=== PATIENT | male | born 1945 | race Caucasian/White ===

== ENCOUNTER 2021-02-07 09:25 | Inpatient (IN) | payer MEDICARE, OTHER ==
--- NOTE | 2021-02-07 10:08 | EDM.PDOC ---
ED HPI GENERAL MEDICAL PROBLEM - General Chief Complaint: Respiratory Problem Stated Complaint: Dyspnea Time Seen by Provider: 02/07/21 09:30 Source of Information: Reports: Patient History Limitations: Reports: No Limitations - History of Present Illness INITIAL COMMENTS - FREE TEXT/NARRATIVE: Patient presented to the ED because of dyspnea which started sometime in December 2009. He was seen in the ED on 01/05/21 and Covid test was negative but chest CT did show bilateral interstitial infiltrates consistent with Covid. He was treted with Dexamethasone 4 mg daily for 10 days and Levaqui 500 mg daily for 10 days which according to him helped with his breathing but days later he started to have dyspnea again and on 02/03/21 he was prescribed prednisone 5 mg daily x 14 days and albuterol Inhaler. There is associated chest tighness and chills but afebrile. There iis no N/V/D. He got his 2 Covid moderna doses the lat one was on 02/03/21 Chest Pain Score (Numeric/FACES): 2 - Related Data Allergies Allergy/AdvReac Type Severity Reaction Status Date / Time No Known Allergies Allergy Verified 02/07/21 09:46 Home Meds: Home Meds Albuterol [Ventolin HFA] 2 puff IH QID PRN 02/07/21 [History] Aspirin [Halfprin] 81 mg PO BEDTIME 02/07/21 [History] Calcium Carbonate/Vitamin D3 [Calcium 250+D] 2 tab PO DAILY 02/07/21 [History] Carboxymethylcellulose Sodium [Refresh Tears] 1 drop EYEBOTH TID PRN 02/07/21 [History] Diclofenac Sodium [Voltaren 1% Gel] 4 gm TOP QID PRN 02/07/21 [History] Fish Oil/[place]-3 Fatty Acids [Fish Oil 1,000 MG] 4 gm PO DAILY 02/07/21 [History] Fluticasone Propionate [Flonase] 2 spray NASBOTH DAILY PRN 02/07/21 [History] Multivitamin-Min/Iron/FA/Vit K [Multi-Day Plus Minerals Tablet] 1 ea PO BEDTIME 02/07/21 [History] Naproxen 250 mg PO BID 02/07/21 [History] Nitroglycerin 0.4 mg SL Q5M PRN 02/07/21 [History] Simvastatin 10 mg PO BEDTIME 02/07/21 [History] atenoloL [Atenolol] 25 mg PO BEDTIME 02/07/21 [History] predniSONE 5 mg PO DAILY 02/07/21 [History] Social & Family History - Tobacco Use Tobacco Use Status *Q: Never Tobacco User - Caffeine Use Caffeine Use: Reports: Coffee - Recreational Drug Use Recreational Drug Use: No ED ROS GENERAL - Review of Systems Review Of Systems: See Below Constitutional: Reports: Chills HEENT: Reports: No Symptoms Respiratory: Reports: Shortness of Breath, Cough Cardiovascular: Reports: Edema Endocrine: Reports: No Symptoms GI/Abdominal: Reports: No Symptoms : Reports: No Symptoms Musculoskeletal: Reports: No Symptoms Skin: Reports: No Symptoms Neurological: Reports: No Symptoms Psychiatric: Reports: No Symptoms Hematologic/Lymphatic: Reports: No Symptoms ED EXAM, GENERAL - Physical Exam Exam: See Below Exam Limited By: No Limitations General Appearance: Alert, No Apparent Distress Eye Exam: Bilateral Eye: PERRL Ears: Normal External Exam, Normal Canal Nose: Normal Inspection, Normal Mucosa, No Blood Throat/Mouth: Normal Inspection, Normal Lips, Normal Teeth Head: Atraumatic, Normocephalic Neck: Normal Inspection, Supple, Non-Tender, Full Range of Motion Respiratory/Chest: No Respiratory Distress, Decreased Breath Sounds Cardiovascular: Normal Peripheral Pulses, Regular Rate, Rhythm, No JVD, No Murmur, No Rub GI/Abdominal: Normal Bowel Sounds, Soft, Non-Tender, No Organomegaly, No Distention, No Abnormal Bruit, No Mass Back Exam: Normal Inspection, Full Range of Motion Extremities: Normal Inspection, Normal Range of Motion, Non-Tender, Pedal Edema Neurological: Alert, Oriented, CN II-XII Intact, Normal Cognition, Normal Reflexes, No Motor/Sensory Deficits #1 Interpretation EKG Date: 02/07/21 Time: 09:27 Rhythm: NSR Rate (Beats/Min): 72 [place]: Normal P-Wave: Present QRS: RBBB ST-T: Normal QT: Normal Comparison: No Change (NSR RBBB) EKG Interpretation Comments: NSR RBBB Course - Vital Signs Text/Narrative:: Lab/EKG/CXR/Chest CT result was reviewed and discussed with patient and his Duoneb x1 Solumedrol 125 mg IV x1 Lasix 40 mg IV x1 Zaoxolyn 5 mg po x1 Last Recorded V/S: Last Vital Signs Temp 36.6 C 02/08/21 08:51 Pulse 69 02/08/21 08:51 Resp 24 H 02/08/21 08:51 BP 119/74 02/08/21 08:51 Pulse Ox 91 L 02/08/21 08:51 - Orders/Labs/Meds Orders: Active Orders 24 hr Category Date Time Status RT Aerosol Therapy [RC] ASDIRECTED Care 02/07/21 11:15 Active Sodium Chloride 0.9% [Saline Flush] Med 02/07/21 09:32 Active 10 ml FLUSH ASDIRECTED PRN Saline Lock Insert [OM.PC] Routine Oth 02/07/21 09:32 Ordered EKG 12 Lead [EK] Routine Ther 02/07/21 09:32 Ordered Medication Orders Albuterol/Ipratropium (Albuterol/Ipratropium 3.0-0.5 Mg/3 Ml Neb Soln) 3 ml NEB QID PRN PRN Reason: DYSPNEA Atenolol (Atenolol 25 Mg Tab) 25 mg PO BEDTIME [facility] Last Admin: 02/07/21 21:50 Dose: 25 mg Documented by: ISI Enoxaparin Sodium (Enoxaparin 40 Mg/0.4 Ml Syringe) 40 mg SUBCUT Q24H [facility] Last Admin: 02/07/21 15:38 Dose: 40 mg Documented by: HERON Furosemide (Furosemide 20 Mg/2 Ml Vial) 20 mg IVPUSH BIDDIURETIC [facility] Last Admin: 02/08/21 09:11 Dose: 20 mg Documented by: KARY Piperacillin Sod/Tazobactam (Sod 3.375 gm/ Sodium Chloride) 50 mls @ 100 mls/hr IV Q6H [facility] Last Admin: 02/08/21 09:17 Dose: 100 mls/hr Documented by: Admin: 02/08/21 03:22 Dose: 100 mls/hr Documented by: Admin: 02/07/21 21:50 Dose: 100 mls/hr Documented by: ISI Multivitamins/Minerals (Multivitamins With Iron/Calcium/Folic Acid/Minerals Tab) 1 tab PO BEDTIME [facility] Ondansetron HCl (Ondansetron 4 Mg/2 Ml Sdv) 4 mg IV Q4H PRN PRN Reason: Nausea/Vomiting Potassium Chloride (Potassium Chloride 20 Meq Tab.Er) 20 meq PO BID [facility] Last Admin: 02/08/21 09:11 Dose: 20 meq Documented by: KARY Saccharomyces Boulardii (Saccharomyces Boulardii (Probiotic) 250 Mg Cap) 250 mg PO BID [facility] Last Admin: 02/08/21 09:10 Dose: 250 mg Documented by: KARY Senna/Docusate Sodium (Docusate Sodium/Sennosides 50-8.6 Mg Tab) 1 tab PO BID PRN PRN Reason: Constipation Simvastatin (Simvastatin 10 Mg Tab) 10 mg PO BEDTIME [facility] Last Admin: 02/07/21 21:50 Dose: 10 mg Documented by: ISI Sodium Chloride (Sodium Chloride 0.9% 10 Ml Syringe) 10 ml FLUSH ASDIRECTED PRN PRN Reason: Keep Vein Open Last Admin: 02/08/21 09:13 Dose: 10 ml Documented by: Admin: 02/08/21 05:45 Dose: 10 ml Documented by: Admin: 02/08/21 04:00 Dose: 10 ml Documented by: Admin: 02/07/21 22:35 Dose: 10 ml Documented by: Admin: 02/07/21 20:05 Dose: 10 ml Documented by: Admin: 02/07/21 11:43 Dose: 10 ml Documented by: DOMINIQUE Labs: Laboratory Tests 02/07/21 02/07/21 02/07/21 Range/Units 09:45 09:45 09:45 WBC 10.8 H (3.2-10.1) x10-3/uL RBC 5.18 (3.90-5.90) x10(6)uL Hgb 15.9 (12.9-17.7) g/dL Hct 46.1 (38.3-50.1) % MCV 89.0 (80.8-98.7) fL MCH 30.7 (27.0-33.3) pg MCHC 34.4 (28.7-35.3) g/dL RDW 14.9 (12.4-15.0) % Plt Count 264 (117-477) x10(3)uL MPV 8.7 (6.7-11.0) fL Neut % (Auto) 72.7 H (40.3-71.8) % Lymph % (Auto) 15.1 L (15.8-45.3) % [place] % (Auto) 9.7 (5.5-15.2) % Eos % (Auto) 2.1 (0.1-6.8) % Baso % (Auto) 0.4 (0.3-3.8) % Neut # (Auto) 7.9 H (1.7-6.9) x10-3/uL Lymph # (Auto) 1.6 (0.5-4.5) x10-3/uL [place] # (Auto) 1.0 (0.0-1.2) x10-3/uL Eos # (Auto) 0.2 (0.0-0.6) x10-3/uL Baso # (Auto) 0.0 (0.0-0.3) x10-3/uL D-Dimer, Quantitative 1.02 H (0.0-0.59) mg/LFEU Sodium 142 (135-145) mmol/L Potassium 4.1 (3.5-5.3) mmol/L Chloride 103 (100-110) mmol/L Carbon Dioxide 24 (21-32) mmol/L BUN 21 H (7-18) mg/dL Creatinine 1.1 (0.70-1.30) mg/dL Est Cr Clr Drug Dosing TNP Estimated GFR (MDRD) > 60 (>60) BUN/Creatinine Ratio 19.1 (9-20) Glucose 169 H (80-116) mg/dL Calcium 8.9 (8.6-10.2) mg/dL Total Bilirubin 0.7 (0.1-1.3) mg/dL AST 29 H (5-25) IU/L ALT 39 H (12-36) U/L Alkaline Phosphatase 51 L (56-112) IU/L Troponin I (4.0-60.3) pg/mL NT-Pro-B Natriuret Pep (<=450) pg/mL Total Protein 7.1 (6.0-8.0) g/dL Albumin 2.8 L (3.2-4.6) g/dL Globulin 4.3 g/dL Albumin/Globulin Ratio 0.7 SARS-CoV-2 RNA (ANDRE) (NEGATIVE) 02/07/21 02/07/21 Range/Units 09:45 11:20 WBC (3.2-10.1) x10-3/uL RBC (3.90-5.90) x10(6)uL Hgb (12.9-17.7) g/dL Hct (38.3-50.1) % MCV (80.8-98.7) fL MCH (27.0-33.3) pg MCHC (28.7-35.3) g/dL RDW (12.4-15.0) % Plt Count (117-477) x10(3)uL MPV (6.7-11.0) fL Neut % (Auto) (40.3-71.8) % Lymph % (Auto) (15.8-45.3) % [place] % (Auto) (5.5-15.2) % Eos % (Auto) (0.1-6.8) % Baso % (Auto) (0.3-3.8) % Neut # (Auto) (1.7-6.9) x10-3/uL Lymph # (Auto) (0.5-4.5) x10-3/uL [place] # (Auto) (0.0-1.2) x10-3/uL Eos # (Auto) (0.0-0.6) x10-3/uL Baso # (Auto) (0.0-0.3) x10-3/uL D-Dimer, Quantitative (0.0-0.59) mg/LFEU Sodium (135-145) mmol/L Potassium (3.5-5.3) mmol/L Chloride (100-110) mmol/L Carbon Dioxide (21-32) mmol/L BUN (7-18) mg/dL Creatinine (0.70-1.30) mg/dL Est Cr Clr Drug Dosing Estimated GFR (MDRD) (>60) BUN/Creatinine Ratio (9-20) Glucose (80-116) mg/dL Calcium (8.6-10.2) mg/dL Total Bilirubin (0.1-1.3) mg/dL AST (5-25) IU/L ALT (12-36) U/L Alkaline Phosphatase (56-112) IU/L Troponin I 9.9 (4.0-60.3) pg/mL NT-Pro-B Natriuret Pep 187 (<=450) pg/mL Total Protein (6.0-8.0) g/dL Albumin (3.2-4.6) g/dL Globulin g/dL Albumin/Globulin Ratio SARS-CoV-2 RNA (ANDRE) Negative (NEGATIVE) Meds: Medications Generic Name Dose Route Start Last Admin Trade Name Freq PRN Reason Stop Dose Admin Albuterol/Ipratropium 3 ml 02/07/21 14:00 Albuterol/Ipratropium 3.0-0.5 Mg/3 Ml Neb Soln NEB QID PRN DYSPNEA Atenolol 25 mg 02/07/21 21:45 02/07/21 21:50 Atenolol 25 Mg Tab PO 25 mg BEDTIME [facility] Administration Enoxaparin Sodium 40 mg 02/07/21 14:30 02/07/21 15:38 Enoxaparin 40 Mg/0.4 Ml Syringe SUBCUT 40 mg Q24H [facility] Administration Furosemide 20 mg 02/08/21 09:00 02/08/21 09:11 Furosemide 20 Mg/2 Ml Vial IVPUSH 20 mg BIDDIURETIC [facility] Administration Piperacillin Sod/Tazobactam 50 mls @ 100 mls/hr 02/07/21 21:30 02/08/21 09:17 Sod 3.375 gm/ Sodium Chloride IV 100 mls/hr Q6H [facility] Administration Multivitamins/Minerals 1 tab 02/08/21 21:00 Multivitamins With Iron/Calcium/Folic Acid/Minerals Tab PO BEDTIME [facility] Ondansetron HCl 4 mg 02/07/21 13:45 Ondansetron 4 Mg/2 Ml Sdv IV Q4H PRN Nausea/Vomiting Potassium Chloride 20 meq 02/08/21 09:00 02/08/21 09:11 Potassium Chloride 20 Meq Tab.Er PO 20 meq BID [facility] Administration Saccharomyces Boulardii 250 mg 02/08/21 09:00 02/08/21 09:10 Saccharomyces Boulardii (Probiotic) 250 Mg Cap PO 250 mg BID [facility] Administration Senna/Docusate Sodium 1 tab 02/07/21 13:45 Docusate Sodium/Sennosides 50-8.6 Mg Tab PO BID PRN Constipation Simvastatin 10 mg 02/07/21 22:00 02/07/21 21:50 Simvastatin 10 Mg Tab PO 10 mg BEDTIME [facility] Administration Sodium Chloride 10 ml 02/07/21 09:32 02/08/21 09:13 Sodium Chloride 0.9% 10 Ml Syringe FLUSH 10 ml ASDIRECTED PRN Administration Keep Vein Open Discontinued Medications Generic Name Dose Route Start Last Admin Trade Name Freq PRN Reason Stop Dose Admin Albuterol/Ipratropium 3 ml 02/07/21 11:14 02/07/21 11:55 Albuterol/Ipratropium 3.0-0.5 Mg/3 Ml Neb Soln NEB 02/07/21 11:15 3 ml NOW STA Administration Albuterol/Ipratropium 3 ml 02/07/21 13:45 02/07/21 15:19 Albuterol/Ipratropium 3.0-0.5 Mg/3 Ml Neb Soln NEB Not Given QID [facility] Furosemide 40 mg 02/07/21 13:28 02/07/21 13:36 Furosemide 40 Mg/4 Ml Vial IVPUSH 02/07/21 13:29 40 mg NOW ONE Administration Furosemide 40 mg 02/07/21 21:00 Furosemide 40 Mg/4 Ml Vial IVPUSH BID [facility] Furosemide 40 mg 02/07/21 19:00 02/07/21 20:04 Furosemide 40 Mg/4 Ml Vial IVPUSH 40 mg BID@0900,1900 [facility] Administration Furosemide 20 mg 02/08/21 09:00 Furosemide 20 Mg/2 Ml Vial IVPUSH DAILY [facility] Iopamidol 100 ml 02/07/21 12:14 02/07/21 12:37 Iopamidol 755 Mg/Ml 100 Ml Bottle IV 02/07/21 12:15 100 ml . DIRECTED ONE Administration Methylprednisolone Sodium Succinate 125 mg 02/07/21 11:14 02/07/21 11:45 Methylprednisolone Sodium Succinate 125 Mg/2 Ml Sdv IVPUSH 02/07/21 11:15 125 mg NOW STA Administration Metolazone 5 mg 02/07/21 13:26 02/07/21 13:36 Metolazone 5 Mg Tab PO 02/07/21 13:27 5 mg ONETIME ONE Administration Metolazone 2.5 mg 02/08/21 08:00 02/08/21 09:00 Metolazone 2.5 Mg Tab PO 2.5 mg DAILY@0800 [facility] Administration Departure - Departure Time of Disposition: 13:40 Disposition: Admitted As Inpatient 64 Condition: Good Clinical Impression: New onset of congestive heart failure, Pulmonary edema - Discharge Information Sepsis Event Note (ED) - Evaluation Sepsis Screening Result: No Definite Risk - My Orders Last 24 Hours: My Active Orders 02/07/21 09:32 Sodium Chloride 0.9% [Saline Flush] 10 ml FLUSH ASDIRECTED PRN Saline Lock Insert [OM.PC] Routine EKG 12 Lead [EK] Routine 02/07/21 11:15 RT Aerosol Therapy [RC] ASDIRECTED - Assessment/Plan Last 24 Hours: My Active Orders 02/07/21 09:32 Sodium Chloride 0.9% [Saline Flush] 10 ml FLUSH ASDIRECTED PRN Saline Lock Insert [OM.PC] Routine EKG 12 Lead [EK] Routine 02/07/21 11:15 RT Aerosol Therapy [RC] ASDIRECTED
--- NOTE | 2021-02-07 10:19 | CR ---
INDICATION: Dyspnea. CHEST, ONE VIEW: Portable AP upright view of the chest was obtained 02/07/21 and compared with 11/17/19. There is bilateral upper to middle and lower lung field infiltration somewhat more prominent on the right than left and patchy in appearance raising question of a process such as aspiration pneumonia or possibly viral pneumonia - question possibility of COVID-19 - correlate clinically. No definite evidence of CHF is seen. The heart size is difficult to evaluate but did not appear grossly enlarged allowing for the AP positioning and poor inspiration. Overlying EKG leads are noted. The aorta is somewhat tortuous with calcification in the arch. IMPRESSION: Bilateral infiltrate suspicious for aspiration or possibly COVID-19 or other viral pneumonia - correlate clinically. MTDD
[2021-02-07] MEDS ORDERED: methylPREDNISolone Sodium Succinate 125 MG/2 ML SDV IVPUSH STA (11:14)
[2021-02-07] MEDS ORDERED: Albuterol/Ipratropium 3.0-0.5 MG/3 ML Neb Soln NEB STA (11:14)
[2021-02-07] MEDS: Sodium Chloride 0.9% 10 ML Syringe FLUSH PRN ×3 (11:43→22:35)
[2021-02-07] MEDS ORDERED: Iopamidol 755 Mg/ML 100 ML Bottle IV ONE (12:14)
[2021-02-07] MEDS ORDERED: Metolazone 5 MG Tab PO ONE (13:26)
[2021-02-07] MEDS ORDERED: Furosemide 40 MG/4 ML VIAL IVPUSH ONE (13:28)
--- NOTE | 2021-02-07 13:29 | CT ---
INDICATION: Dyspnea, elevated D-dimer, question PE. COMPUTERIZED TOMOGRAPHY ANGIOGRAPHY OF THE CHEST WITH CONTRAST: Spiral 1.25 mm axial sections were obtained through the chest with 100 mL [id number] at 3 mL per second with sagittal, coronal and axial reconstructions 02/07/21 and compared with 01/05/21. Total exam DLP was 947.55 mGy-cm. No definite mediastinal mass was seen. The heart is enlarged with fairly extensive coronary artery calcifications. Calcifications are noted at the arch of the aorta. Mediastinal lymphadenopathy is moderate and similar to the previous study and may be on the basis of chronic inflammatory disease but is nonspecific. The upper abdomen included on this study showed evidence of a tiny calculus most likely in a calyx of the posterior midpole area of the left kidney with a small calcifying lesion again noted off the upper pole of the left kidney which appears stable and likely due to previous hemorrhagic cyst or other complicated process. A significant neoplastic process is difficult to entirely exclude, but is felt to be less likely. There are bilateral infiltrates which appear to be accentuated compared with the previous examination, especially posteriorly. Findings may represent fibrosis with superimposed areas of patchy pneumonia or possibly pulmonary edema in a patient with CHF. Findings should be correlated clinically in that regard. No definite evidence of PE could be identified. IMPRESSION: 1. No definite PE identified. 2. Increasing infiltration bilaterally with enlarged heart raising question of CHF with lung edema, although superimposed pneumonia would also be a consideration - correlate clinically. 3. ASHD with cardiomegaly, coronary artery calcifications. Report was called to Dr. Yee at 1305 hours. [facility]
[2021-02-07] MEDS ORDERED: Ondansetron 4 MG/2 ML SDV IV PRN (13:45)
[2021-02-07] MEDS ORDERED: Albuterol/Ipratropium 3.0-0.5 MG/3 ML Neb Soln NEB SCH (13:45)
[2021-02-07] MEDS: Enoxaparin 40 MG/0.4 ML Syringe SUBCUT SCH (15:38)
[2021-02-07] MEDS ORDERED: Furosemide 40 MG/4 ML VIAL IVPUSH SCH ×2 (19:00→21:00)
--- NOTE | 2021-02-07 21:20 | PCM.HP.2 ---
H&P History of Present Illness - General Date of Service: 02/07/21 Admit Problem/Dx: Admission Diagnosis/Problem Admission Diagnosis/Problem Congestive heart failure Source of Information: Patient History Limitations: Reports: No Limitations - History of Present Illness Initial Comments - Free Text/Narative: Baltazar complains of SOBOE. This started in October,and has been getting worse progressively.He has been treated several times as an outpatient for pneumonia,and bronchitis,with no improvement. he has had COVID testing x4 and has been negative. He ia a non smoker. Previously healthy. Chest Pain Score (Numeric/FACES): 2 - Related Data Allergies/Adverse Reactions: Allergies Allergy/AdvReac Type Severity Reaction Status Date / Time No Known Allergies Allergy Verified 02/07/21 09:46 Home Medications: Home Meds Albuterol [Ventolin HFA] 2 puff IH QID PRN 02/07/21 [History] Aspirin [Halfprin] 81 mg PO BEDTIME 02/07/21 [History] Calcium Carbonate/Vitamin D3 [Calcium 250+D] 2 tab PO DAILY 02/07/21 [History] Carboxymethylcellulose Sodium [Refresh Tears] 1 drop EYEBOTH TID PRN 02/07/21 [History] Diclofenac Sodium [Voltaren 1% Gel] 4 gm TOP QID PRN 02/07/21 [History] Fish Oil/[place]-3 Fatty Acids [Fish Oil 1,000 MG] 4 gm PO DAILY 02/07/21 [History] Fluticasone Propionate [Flonase] 2 spray NASBOTH DAILY PRN 02/07/21 [History] Multivitamin-Min/Iron/FA/Vit K [Multi-Day Plus Minerals Tablet] 1 ea PO BEDTIME 02/07/21 [History] Naproxen 250 mg PO BID 02/07/21 [History] Nitroglycerin 0.4 mg SL Q5M PRN 02/07/21 [History] Simvastatin 10 mg PO BEDTIME 02/07/21 [History] atenoloL [Atenolol] 25 mg PO BEDTIME 02/07/21 [History] predniSONE 5 mg PO DAILY 02/07/21 [History] Past Medical History HEENT History: Reports: Hard of Hearing Cardiovascular History: Reports: SOB on Exertion, Stents, Other (See Below) Other Cardiovascular History: 3 stents. Respiratory History: Reports: SOB, Other (See Below) Other Respiratory History: former smoker, quit 1985 Gastrointestinal History: Reports: Irritable Bowel Syndrome Genitourinary History: Reports: UTI, Recurrent - Past Surgical History HEENT Surgical History: Reports: Adenoidectomy, Cataract Surgery, Tonsillectomy GI Surgical History: Reports: Hernia Repair/Other Musculoskeletal Surgical History: Reports: Knee Replacement, Other (See Below) Other Musculoskeletal Surgeries/Procedures:: bilateral knee replacement. Social & Family History - Family History Family Medical History: No Pertinent Family History - Tobacco Use Tobacco Use Status *Q: Former Tobacco User Used Tobacco, but Quit: Yes Month/Year Tobacco Last Used: 1985 Tobacco Use Comment: states that growing up he was exposed to second ahnd smoke. Second Hand Smoke Exposure: Yes - Caffeine Use Caffeine Use: Reports: Coffee - Recreational Drug Use Recreational Drug Use: No H&P Review of Systems - Review of Systems: Review Of Systems: Comprehensive ROS is negative, except as noted in HPI. Exam - Exam Exam: See Below - Vital Signs Vital Signs: Last Vital Signs Temp 97.4 F 02/07/21 20:14 Pulse 87 02/07/21 20:14 Resp 21 H 02/07/21 20:14 BP 141/81 H 02/07/21 20:14 Pulse Ox 95 02/07/21 20:14 Weight: 109.372 kg - Exam Quality Assessment: Supplemental Oxygen General: Alert HEENT: PERRLA Neck: Supple Lungs: Crackles, Rales Cardiovascular: Regular Rate GI/Abdominal Exam: Normal Bowel Sounds (Male) Exam: No Hernia Back Exam: Normal Inspection Extremities: Normal Inspection Skin: Warm Neurological: Cranial Nerves Intact Neuro Extensive - Mental Status: Alert, Oriented x3 Neuro Extensive - Motor, Sensory, Reflexes: CN II-XII Intact Psychiatric: Alert, Normal Affect - Patient Data Lab Results Last 24 hrs: Laboratory Results - last 24 hr 02/07/21 02/07/21 02/07/21 Range/Units 09:45 09:45 09:45 WBC 10.8 H (3.2-10.1) x10-3/uL RBC 5.18 (3.90-5.90) x10(6)uL Hgb 15.9 (12.9-17.7) g/dL Hct 46.1 (38.3-50.1) % MCV 89.0 (80.8-98.7) fL MCH 30.7 (27.0-33.3) pg MCHC 34.4 (28.7-35.3) g/dL RDW 14.9 (12.4-15.0) % Plt Count 264 (117-477) x10(3)uL MPV 8.7 (6.7-11.0) fL Neut % (Auto) 72.7 H (40.3-71.8) % Lymph % (Auto) 15.1 L (15.8-45.3) % [place] % (Auto) 9.7 (5.5-15.2) % Eos % (Auto) 2.1 (0.1-6.8) % Baso % (Auto) 0.4 (0.3-3.8) % Neut # (Auto) 7.9 H (1.7-6.9) x10-3/uL Lymph # (Auto) 1.6 (0.5-4.5) x10-3/uL [place] # (Auto) 1.0 (0.0-1.2) x10-3/uL Eos # (Auto) 0.2 (0.0-0.6) x10-3/uL Baso # (Auto) 0.0 (0.0-0.3) x10-3/uL D-Dimer, Quantitative 1.02 H (0.0-0.59) mg/LFEU Sodium 142 (135-145) mmol/L Potassium 4.1 (3.5-5.3) mmol/L Chloride 103 (100-110) mmol/L Carbon Dioxide 24 (21-32) mmol/L BUN 21 H (7-18) mg/dL Creatinine 1.1 (0.70-1.30) mg/dL Est Cr Clr Drug Dosing TNP Estimated GFR (MDRD) > 60 (>60) BUN/Creatinine Ratio 19.1 (9-20) Glucose 169 H (80-116) mg/dL Calcium 8.9 (8.6-10.2) mg/dL Total Bilirubin 0.7 (0.1-1.3) mg/dL AST 29 H (5-25) IU/L ALT 39 H (12-36) U/L Alkaline Phosphatase 51 L (56-112) IU/L Troponin I (4.0-60.3) pg/mL NT-Pro-B Natriuret Pep (<=450) pg/mL Total Protein 7.1 (6.0-8.0) g/dL Albumin 2.8 L (3.2-4.6) g/dL Globulin 4.3 g/dL Albumin/Globulin Ratio 0.7 SARS-CoV-2 RNA (ANDRE) (NEGATIVE) 02/07/21 02/07/21 Range/Units 09:45 11:20 WBC (3.2-10.1) x10-3/uL RBC (3.90-5.90) x10(6)uL Hgb (12.9-17.7) g/dL Hct (38.3-50.1) % MCV (80.8-98.7) fL MCH (27.0-33.3) pg MCHC (28.7-35.3) g/dL RDW (12.4-15.0) % Plt Count (117-477) x10(3)uL MPV (6.7-11.0) fL Neut % (Auto) (40.3-71.8) % Lymph % (Auto) (15.8-45.3) % [place] % (Auto) (5.5-15.2) % Eos % (Auto) (0.1-6.8) % Baso % (Auto) (0.3-3.8) % Neut # (Auto) (1.7-6.9) x10-3/uL Lymph # (Auto) (0.5-4.5) x10-3/uL [place] # (Auto) (0.0-1.2) x10-3/uL Eos # (Auto) (0.0-0.6) x10-3/uL Baso # (Auto) (0.0-0.3) x10-3/uL D-Dimer, Quantitative (0.0-0.59) mg/LFEU Sodium (135-145) mmol/L Potassium (3.5-5.3) mmol/L Chloride (100-110) mmol/L Carbon Dioxide (21-32) mmol/L BUN (7-18) mg/dL Creatinine (0.70-1.30) mg/dL Est Cr Clr Drug Dosing Estimated GFR (MDRD) (>60) BUN/Creatinine Ratio (9-20) Glucose (80-116) mg/dL Calcium (8.6-10.2) mg/dL Total Bilirubin (0.1-1.3) mg/dL AST (5-25) IU/L ALT (12-36) U/L Alkaline Phosphatase (56-112) IU/L Troponin I 9.9 (4.0-60.3) pg/mL NT-Pro-B Natriuret Pep 187 (<=450) pg/mL Total Protein (6.0-8.0) g/dL Albumin (3.2-4.6) g/dL Globulin g/dL Albumin/Globulin Ratio SARS-CoV-2 RNA (ANDRE) Negative (NEGATIVE) Result Diagrams: 02/07/21 09:45 02/07/21 09:45 Sepsis Event Note - Evaluation Sepsis Screening Result: No Definite Risk - Focused Exam Vital Signs: Vital Signs Temp Temp Pulse Pulse Resp BP Pulse Ox 02/07/21 20:14 97.4 F 87 21 H 141/81 H 95 02/07/21 18:00 97.6 F 83 22 H 155/83 H 90 L 02/07/21 15:30 02/07/21 14:15 97.8 F 72 28 H 148/77 H 91 L 02/07/21 14:05 91 L 02/07/21 09:25 98.2 F 75 16 142/88 H 77 L Pulse Ox 02/07/21 20:14 02/07/21 18:00 02/07/21 15:30 93 L 02/07/21 14:15 02/07/21 14:05 02/07/21 09:25 93 L - Problem List (1) SOBOE (shortness of breath on exertion) SNOMED Code(s): 77430163 ICD Code: R06.02 - SHORTNESS OF BREATH Status: Acute Current Visit: Yes (2) Pneumonitis SNOMED Code(s): 958088556 ICD Code: J18.9 - PNEUMONIA, UNSPECIFIED ORGANISM Status: Acute Current Visit: Yes Problem List Initiated/Reviewed/Updated: Yes Orders Last 24hrs: Active Orders 24 hr Category Date Time Status Patient Status [ADT] Routine ADT 02/07/21 13:45 Active Cardiac Monitoring [RC] 06,14,22 Care 02/07/21 13:47 Active Oxygen Therapy [RC] DAILY Care 02/07/21 13:45 Active Pulse Oximetry [RC] CONTINUOUS Care 02/07/21 13:47 Active RT Aerosol Therapy [RC] ASDIRECTED Care 02/07/21 11:15 Active RT Aerosol Therapy [RC] ASDIRECTED Care 02/07/21 13:49 Active Vital Signs [RC] Q4H Care 02/07/21 13:45 Active Heart Healthy Diet [DIET] Diet 02/07/21 Dinner Active BASIC METABOLIC PANEL,BMP [CHEM] AM Lab 02/08/21 05:11 Ordered CBC WITH AUTO DIFF [HEME] AM Lab 02/08/21 05:11 Ordered PRO B-TYPE NATRIUR PEPT,BNPPRO [CHEM] DAILY Lab 02/08/21 05:11 Ordered TROPONIN I [CHEM] AM Lab 02/08/21 05:11 Ordered Albuterol/Ipratropium [DuoNeb 3.0-0.5 MG/3 ML] Med 02/07/21 14:00 Active 3 ml NEB QID PRN Docusate Sodium/Sennosides [Senna Plus] Med 02/07/21 13:45 Active 1 tab PO BID PRN Enoxaparin [Lovenox] Med 02/07/21 14:30 Active 40 mg SUBCUT Q24H Furosemide [Lasix] Med 02/07/21 19:00 Active 40 mg IVPUSH BID@0900,1900 Ondansetron [Zofran] Med 02/07/21 13:45 Active 4 mg IV Q4H PRN Piperacillin/Tazobactam [Zosyn] 3.375 gm Med 02/07/21 21:15 Ordered Sodium Chloride 0.9% [Normal Saline] 50 ml IV Q6H Saccharomyces Boulardii [Florastor] Med 02/08/21 09:00 Ordered 250 mg PO BID Sodium Chloride 0.9% [Saline Flush] Med 02/07/21 09:32 Active 10 ml FLUSH ASDIRECTED PRN metOLazone [Zaroxolyn] Med 02/08/21 08:00 Active 2.5 mg PO DAILY@0800 Saline Lock Insert [OM.PC] Routine Oth 02/07/21 09:32 Ordered Resuscitation Status Routine Resus Stat 02/07/21 13:45 Ordered EKG 12 Lead [EK] Routine Ther 02/07/21 09:32 Ordered Medication Orders Albuterol/Ipratropium (Albuterol/Ipratropium 3.0-0.5 Mg/3 Ml Neb Soln) 3 ml NEB QID PRN PRN Reason: DYSPNEA Enoxaparin Sodium (Enoxaparin 40 Mg/0.4 Ml Syringe) 40 mg SUBCUT Q24H [facility] Last Admin: 02/07/21 15:38 Dose: 40 mg Documented by: HERON Furosemide (Furosemide 40 Mg/4 Ml Vial) 40 mg IVPUSH BID@0900,1900 [facility] Last Admin: 02/07/21 20:04 Dose: 40 mg Documented by: ISI Piperacillin Sod/Tazobactam (Sod 3.375 gm/ Sodium Chloride) 50 mls @ 100 mls/hr IV Q6H [facility] Metolazone (Metolazone 2.5 Mg Tab) 2.5 mg PO DAILY@0800 [facility] Ondansetron HCl (Ondansetron 4 Mg/2 Ml Sdv) 4 mg IV Q4H PRN PRN Reason: Nausea/Vomiting Saccharomyces Boulardii (Saccharomyces Boulardii (Probiotic) 250 Mg Cap) 250 mg PO BID [place] Senna/Docusate Sodium (Docusate Sodium/Sennosides 50-8.6 Mg Tab) 1 tab PO BID P RN PRN Reason: Constipation Sodium Chloride (Sodium Chloride 0.9% 10 Ml Syringe) 10 ml FLUSH ASDIRECTED PRN PRN Reason: Keep Vein Open Last Admin: 02/07/21 20:05 Dose: 10 ml Documented by: Admin: 02/07/21 11:43 Dose: 10 ml Documented by: [email or web address] Assessment/Plan Comment:: CT and XRay show bilateral infiltrates possibly pneumonia or CHF. Will start Zosyn,and continue Diuresis.O2 supplemetnation by nasal canula
[2021-02-07] MEDS: Piperacillin/Tazobactam 3.375 GM in Sodium Chloride 0.9% 50 ML IV SCH (21:50)
[2021-02-07] MEDS: Simvastatin 10 MG Tab PO SCH (21:50)
[2021-02-07] MEDS: Atenolol 25 MG Tab PO SCH (21:50)
[2021-02-08] MEDS: Piperacillin/Tazobactam 3.375 GM in Sodium Chloride 0.9% 50 ML IV SCH ×4 (03:22→21:23)
[2021-02-08] MEDS: Sodium Chloride 0.9% 10 ML Syringe FLUSH PRN ×6 (04:00→22:00)
[2021-02-08] MEDS ORDERED: Metolazone 2.5 MG Tab PO SCH (08:00)
[2021-02-08] MEDS ORDERED: Furosemide 20 MG/2 ML VIAL IVPUSH SCH (09:00)
[2021-02-08] MEDS: Saccharomyces Boulardii (Probiotic) 250 MG Cap PO SCH ×2 (09:10→20:22)
[2021-02-08] MEDS: Potassium Chloride 20 MEQ Tab.ER PO SCH ×2 (09:11→20:22)
[2021-02-08] MEDS: Furosemide 20 MG/2 ML VIAL IVPUSH SCH ×2 (09:11→14:08)
--- NOTE | 2021-02-08 09:21 | PCM.PN ---
- General Info Date of Service: 02/08/21 Subjective Update: Baltazar feels better today. He is able to ambulate some,and his oxygen needs are down to 2L. He is down 7 lbs today. Cough is present,productive. - Review of Systems HEENT: Reports: No Symptoms Pulmonary: Reports: Shortness of Breath, Cough Cardiovascular: Reports: Orthopnea Gastrointestinal: Reports: No Symptoms Genitourinary: Reports: No Symptoms Musculoskeletal: Reports: No Symptoms Skin: Reports: No Symptoms Neurological: Reports: No Symptoms - Patient Data Vitals - Most Recent: Last Vital Signs Temp 97.8 F 02/08/21 08:51 Pulse 69 02/08/21 08:51 Resp 24 H 02/08/21 08:51 BP 119/74 02/08/21 08:51 Pulse Ox 91 L 02/08/21 08:51 Weight - Most Recent: 106.169 kg I&O - Last 24 Hours: Intake & Output 02/07/21 02/08/21 02/08/21 22:59 06:59 14:59 Intake Total 200 Balance 200 Lab Results Last 24 Hours: Laboratory Results - last 24 hr 02/07/21 02/07/21 02/07/21 Range/Units 09:45 09:45 09:45 WBC 10.8 H (3.2-10.1) x10-3/uL RBC 5.18 (3.90-5.90) x10(6)uL Hgb 15.9 (12.9-17.7) g/dL Hct 46.1 (38.3-50.1) % MCV 89.0 (80.8-98.7) fL MCH 30.7 (27.0-33.3) pg MCHC 34.4 (28.7-35.3) g/dL RDW 14.9 (12.4-15.0) % Plt Count 264 (117-477) x10(3)uL MPV 8.7 (6.7-11.0) fL Neut % (Auto) 72.7 H (40.3-71.8) % Lymph % (Auto) 15.1 L (15.8-45.3) % [place] % (Auto) 9.7 (5.5-15.2) % Eos % (Auto) 2.1 (0.1-6.8) % Baso % (Auto) 0.4 (0.3-3.8) % Neut # (Auto) 7.9 H (1.7-6.9) x10-3/uL Lymph # (Auto) 1.6 (0.5-4.5) x10-3/uL [place] # (Auto) 1.0 (0.0-1.2) x10-3/uL Eos # (Auto) 0.2 (0.0-0.6) x10-3/uL Baso # (Auto) 0.0 (0.0-0.3) x10-3/uL Add Manual Diff Neutrophils % (Manual) (46-82) % Band Neutrophils % (0-6) % Lymphocytes % (Manual) (13-37) % Monocytes % (Manual) (4-12) % D-Dimer, Quantitative 1.02 H (0.0-0.59) mg/LFEU Sodium 142 (135-145) mmol/L Potassium 4.1 (3.5-5.3) mmol/L Chloride 103 (100-110) mmol/L Carbon Dioxide 24 (21-32) mmol/L BUN 21 H (7-18) mg/dL Creatinine 1.1 (0.70-1.30) mg/dL Est Cr Clr Drug Dosing TNP Estimated GFR (MDRD) > 60 (>60) BUN/Creatinine Ratio 19.1 (9-20) Glucose 169 H (80-116) mg/dL Calcium 8.9 (8.6-10.2) mg/dL Total Bilirubin 0.7 (0.1-1.3) mg/dL AST 29 H (5-25) IU/L ALT 39 H (12-36) U/L Alkaline Phosphatase 51 L (56-112) IU/L Troponin I (4.0-60.3) pg/mL NT-Pro-B Natriuret Pep (<=450) pg/mL Total Protein 7.1 (6.0-8.0) g/dL Albumin 2.8 L (3.2-4.6) g/dL Globulin 4.3 g/dL Albumin/Globulin Ratio 0.7 SARS-CoV-2 RNA (ANDRE) (NEGATIVE) 02/07/21 02/07/21 02/08/21 Range/Units 09:45 11:20 06:00 WBC (3.2-10.1) x10-3/uL RBC (3.90-5.90) x10(6)uL Hgb (12.9-17.7) g/dL Hct (38.3-50.1) % MCV (80.8-98.7) fL MCH (27.0-33.3) pg MCHC (28.7-35.3) g/dL RDW (12.4-15.0) % Plt Count (117-477) x10(3)uL MPV (6.7-11.0) fL Neut % (Auto) (40.3-71.8) % Lymph % (Auto) (15.8-45.3) % [place] % (Auto) (5.5-15.2) % Eos % (Auto) (0.1-6.8) % Baso % (Auto) (0.3-3.8) % Neut # (Auto) (1.7-6.9) x10-3/uL Lymph # (Auto) (0.5-4.5) x10-3/uL [place] # (Auto) (0.0-1.2) x10-3/uL Eos # (Auto) (0.0-0.6) x10-3/uL Baso # (Auto) (0.0-0.3) x10-3/uL Add Manual Diff Neutrophils % (Manual) (46-82) % Band Neutrophils % (0-6) % Lymphocytes % (Manual) (13-37) % Monocytes % (Manual) (4-12) % D-Dimer, Quantitative (0.0-0.59) mg/LFEU Sodium 141 (135-145) mmol/L Potassium 3.9 (3.5-5.3) mmol/L Chloride 99 L (100-110) mmol/L Carbon Dioxide 27 (21-32) mmol/L BUN 31 H D (7-18) mg/dL Creatinine 1.5 H (0.70-1.30) mg/dL Est Cr Clr Drug Dosing 41.24 Estimated GFR (MDRD) 45 L (>60) BUN/Creatinine Ratio 20.7 H (9-20) Glucose 186 H (80-116) mg/dL Calcium 9.5 (8.6-10.2) mg/dL Total Bilirubin (0.1-1.3) mg/dL AST (5-25) IU/L ALT (12-36) U/L Alkaline Phosphatase (56-112) IU/L Troponin I 9.9 (4.0-60.3) pg/mL NT-Pro-B Natriuret Pep 187 (<=450) pg/mL Total Protein (6.0-8.0) g/dL Albumin (3.2-4.6) g/dL Globulin g/dL Albumin/Globulin Ratio SARS-CoV-2 RNA (ANDRE) Negative (NEGATIVE) 02/08/21 02/08/21 Range/Units 06:00 06:00 WBC 13.1 H (3.2-10.1) x10-3/uL RBC 5.64 (3.90-5.90) x10(6)uL Hgb 17.1 (12.9-17.7) g/dL Hct 50.1 (38.3-50.1) % MCV 88.9 (80.8-98.7) fL MCH 30.3 (27.0-33.3) pg MCHC 34.0 (28.7-35.3) g/dL RDW 14.4 (12.4-15.0) % Plt Count 283 (117-477) x10(3)uL MPV 7.7 (6.7-11.0) fL Neut % (Auto) (40.3-71.8) % Lymph % (Auto) (15.8-45.3) % [place] % (Auto) (5.5-15.2) % Eos % (Auto) (0.1-6.8) % Baso % (Auto) (0.3-3.8) % Neut # (Auto) (1.7-6.9) x10-3/uL Lymph # (Auto) (0.5-4.5) x10-3/uL [place] # (Auto) (0.0-1.2) x10-3/uL Eos # (Auto) (0.0-0.6) x10-3/uL Baso # (Auto) (0.0-0.3) x10-3/uL Add Manual Diff Yes Neutrophils % (Manual) 79 (46-82) % Band Neutrophils % 1 (0-6) % Lymphocytes % (Manual) 16 (13-37) % Monocytes % (Manual) 4 (4-12) % D-Dimer, Quantitative (0.0-0.59) mg/LFEU Sodium (135-145) mmol/L Potassium (3.5-5.3) mmol/L Chloride (100-110) mmol/L Carbon Dioxide (21-32) mmol/L BUN (7-18) mg/dL Creatinine (0.70-1.30) mg/dL Est Cr Clr Drug Dosing Estimated GFR (MDRD) (>60) BUN/Creatinine Ratio (9-20) Glucose (80-116) mg/dL Calcium (8.6-10.2) mg/dL Total Bilirubin (0.1-1.3) mg/dL AST (5-25) IU/L ALT (12-36) U/L Alkaline Phosphatase (56-112) IU/L Troponin I 13.0 (4.0-60.3) pg/mL NT-Pro-B Natriuret Pep 392 (<=450) pg/mL Total Protein (6.0-8.0) g/dL Albumin (3.2-4.6) g/dL Globulin g/dL Albumin/Globulin Ratio SARS-CoV-2 RNA (ANDRE) (NEGATIVE) Med Orders - Current: Current Medications Albuterol/Ipratropium (Albuterol/Ipratropium 3.0-0.5 Mg/3 Ml Neb Soln) 3 ml NEB QID PRN PRN Reason: DYSPNEA Atenolol (Atenolol 25 Mg Tab) 25 mg PO BEDTIME [facility] Last Admin: 02/07/21 21:50 Dose: 25 mg Documented by: Enoxaparin Sodium (Enoxaparin 40 Mg/0.4 Ml Syringe) 40 mg SUBCUT Q24H [facility] Last Admin: 02/07/21 15:38 Dose: 40 mg Documented by: Furosemide (Furosemide 20 Mg/2 Ml Vial) 20 mg IVPUSH BIDDIURETIC [place] Last Admin: 02/08/21 09:11 Dose: 20 mg Documented by: Piperacillin Sod/Tazobactam (Sod 3.375 gm/ Sodium Chloride) 50 mls @ 100 mls/hr IV Q6H [facility] Last Admin: 02/08/21 09:17 Dose: 100 mls/hr Documented by: Multivitamins/Minerals (Multivitamins With Iron/Calcium/Folic Acid/Minerals Tab) 1 tab PO BEDTIME [facility] Ondansetron HCl (Ondansetron 4 Mg/2 Ml Sdv) 4 mg IV Q4H PRN PRN Reason: Nausea/Vomiting Potassium Chloride (Potassium Chloride 20 Meq Tab.Er) 20 meq PO BID [facility] Last Admin: 02/08/21 09:11 Dose: 20 meq Documented by: Saccharomyces Boulardii (Saccharomyces Boulardii (Probiotic) 250 Mg Cap) 250 mg PO BID [facility] Last Admin: 02/08/21 09:10 Dose: 250 mg Documented by: Senna/Docusate Sodium (Docusate Sodium/Sennosides 50-8.6 Mg Tab) 1 tab PO BID PRN PRN Reason: Constipation Simvastatin (Simvastatin 10 Mg Tab) 10 mg PO BEDTIME [facility] Last Admin: 02/07/21 21:50 Dose: 10 mg Documented by: Sodium Chloride (Sodium Chloride 0.9% 10 Ml Syringe) 10 ml FLUSH ASDIRECTED PRN PRN Reason: Keep Vein Open Last Admin: 02/08/21 05:45 Dose: 10 ml Documented by: Discontinued Medications Albuterol/Ipratropium (Albuterol/Ipratropium 3.0-0.5 Mg/3 Ml Neb Soln) 3 ml NEB NOW STA Stop: 02/07/21 11:15 Last Admin: 02/07/21 11:55 Dose: 3 ml Documented by: Albuterol/Ipratropium (Albuterol/Ipratropium 3.0-0.5 Mg/3 Ml Neb Soln) 3 ml NEB QID [facility] Last Admin: 02/07/21 15:19 Dose: Not Given Documented by: Furosemide (Furosemide 40 Mg/4 Ml Vial) 40 mg IVPUSH NOW ONE Stop: 02/07/21 13:29 Last Admin: 02/07/21 13:36 Dose: 40 mg Documented by: Furosemide (Furosemide 40 Mg/4 Ml Vial) 40 mg IVPUSH BID [facility] Furosemide (Furosemide 40 Mg/4 Ml Vial) 40 mg IVPUSH BID@0900,1900 [facility] Last Admin: 02/07/21 20:04 Dose: 40 mg Documented by: Furosemide (Furosemide 20 Mg/2 Ml Vial) 20 mg IVPUSH DAILY [facility] Iopamidol (Iopamidol 755 Mg/Ml 100 Ml Bottle) 100 ml IV . DIRECTED ONE Stop: 02/07/21 12:15 Last Admin: 02/07/21 12:37 Dose: 100 ml Documented by: Methylprednisolone Sodium Succinate (Methylprednisolone Sodium Succinate 125 Mg/2 Ml Sdv) 125 mg IVPUSH NOW STA Stop: 02/07/21 11:15 Last Admin: 02/07/21 11:45 Dose: 125 mg Documented by: Metolazone (Metolazone 5 Mg Tab) 5 mg PO ONETIME ONE Stop: 02/07/21 13:27 Last Admin: 02/07/21 13:36 Dose: 5 mg Documented by: Metolazone (Metolazone 2.5 Mg Tab) 2.5 mg PO DAILY@0800 [facility] Last Admin: 02/08/21 09:00 Dose: 2.5 mg Documented by: - Patient Data Lab Results Last 24 hrs: Laboratory Results - last 24 hr 02/07/21 02/07/21 02/07/21 Range/Units 09:45 09:45 09:45 WBC 10.8 H (3.2-10.1) x10-3/uL RBC 5.18 (3.90-5.90) x10(6)uL Hgb 15.9 (12.9-17.7) g/dL Hct 46.1 (38.3-50.1) % MCV 89.0 (80.8-98.7) fL MCH 30.7 (27.0-33.3) pg MCHC 34.4 (28.7-35.3) g/dL RDW 14.9 (12.4-15.0) % Plt Count 264 (117-477) x10(3)uL MPV 8.7 (6.7-11.0) fL Neut % (Auto) 72.7 H (40.3-71.8) % Lymph % (Auto) 15.1 L (15.8-45.3) % [place] % (Auto) 9.7 (5.5-15.2) % Eos % (Auto) 2.1 (0.1-6.8) % Baso % (Auto) 0.4 (0.3-3.8) % Neut # (Auto) 7.9 H (1.7-6.9) x10-3/uL Lymph # (Auto) 1.6 (0.5-4.5) x10-3/uL [place] # (Auto) 1.0 (0.0-1.2) x10-3/uL Eos # (Auto) 0.2 (0.0-0.6) x10-3/uL Baso # (Auto) 0.0 (0.0-0.3) x10-3/uL Add Manual Diff Neutrophils % (Manual) (46-82) % Band Neutrophils % (0-6) % Lymphocytes % (Manual) (13-37) % Monocytes % (Manual) (4-12) % D-Dimer, Quantitative 1.02 H (0.0-0.59) mg/LFEU Sodium 142 (135-145) mmol/L Potassium 4.1 (3.5-5.3) mmol/L Chloride 103 (100-110) mmol/L Carbon Dioxide 24 (21-32) mmol/L BUN 21 H (7-18) mg/dL Creatinine 1.1 (0.70-1.30) mg/dL Est Cr Clr Drug Dosing TNP Estimated GFR (MDRD) > 60 (>60) BUN/Creatinine Ratio 19.1 (9-20) Glucose 169 H (80-116) mg/dL Calcium 8.9 (8.6-10.2) mg/dL Total Bilirubin 0.7 (0.1-1.3) mg/dL AST 29 H (5-25) IU/L ALT 39 H (12-36) U/L Alkaline Phosphatase 51 L (56-112) IU/L Troponin I (4.0-60.3) pg/mL NT-Pro-B Natriuret Pep (<=450) pg/mL Total Protein 7.1 (6.0-8.0) g/dL Albumin 2.8 L (3.2-4.6) g/dL Globulin 4.3 g/dL Albumin/Globulin Ratio 0.7 SARS-CoV-2 RNA (ANDRE) (NEGATIVE) 02/07/21 02/07/21 02/08/21 Range/Units 09:45 11:20 06:00 WBC (3.2-10.1) x10-3/uL RBC (3.90-5.90) x10(6)uL Hgb (12.9-17.7) g/dL Hct (38.3-50.1) % MCV (80.8-98.7) fL MCH (27.0-33.3) pg MCHC (28.7-35.3) g/dL RDW (12.4-15.0) % Plt Count (117-477) x10(3)uL MPV (6.7-11.0) fL Neut % (Auto) (40.3-71.8) % Lymph % (Auto) (15.8-45.3) % [place] % (Auto) (5.5-15.2) % Eos % (Auto) (0.1-6.8) % Baso % (Auto) (0.3-3.8) % Neut # (Auto) (1.7-6.9) x10-3/uL Lymph # (Auto) (0.5-4.5) x10-3/uL [place] # (Auto) (0.0-1.2) x10-3/uL Eos # (Auto) (0.0-0.6) x10-3/uL Baso # (Auto) (0.0-0.3) x10-3/uL Add Manual Diff Neutrophils % (Manual) (46-82) % Band Neutrophils % (0-6) % Lymphocytes % (Manual) (13-37) % Monocytes % (Manual) (4-12) % D-Dimer, Quantitative (0.0-0.59) mg/LFEU Sodium 141 (135-145) mmol/L Potassium 3.9 (3.5-5.3) mmol/L Chloride 99 L (100-110) mmol/L Carbon Dioxide 27 (21-32) mmol/L BUN 31 H D (7-18) mg/dL Creatinine 1.5 H (0.70-1.30) mg/dL Est Cr Clr Drug Dosing 41.24 Estimated GFR (MDRD) 45 L (>60) BUN/Creatinine Ratio 20.7 H (9-20) Glucose 186 H (80-116) mg/dL Calcium 9.5 (8.6-10.2) mg/dL Total Bilirubin (0.1-1.3) mg/dL AST (5-25) IU/L ALT (12-36) U/L Alkaline Phosphatase (56-112) IU/L Troponin I 9.9 (4.0-60.3) pg/mL NT-Pro-B Natriuret Pep 187 (<=450) pg/mL Total Protein (6.0-8.0) g/dL Albumin (3.2-4.6) g/dL Globulin g/dL Albumin/Globulin Ratio SARS-CoV-2 RNA (ANDRE) Negative (NEGATIVE) 02/08/21 02/08/21 Range/Units 06:00 06:00 WBC 13.1 H (3.2-10.1) x10-3/uL RBC 5.64 (3.90-5.90) x10(6)uL Hgb 17.1 (12.9-17.7) g/dL Hct 50.1 (38.3-50.1) % MCV 88.9 (80.8-98.7) fL MCH 30.3 (27.0-33.3) pg MCHC 34.0 (28.7-35.3) g/dL RDW 14.4 (12.4-15.0) % Plt Count 283 (117-477) x10(3)uL MPV 7.7 (6.7-11.0) fL Neut % (Auto) (40.3-71.8) % Lymph % (Auto) (15.8-45.3) % [place] % (Auto) (5.5-15.2) % Eos % (Auto) (0.1-6.8) % Baso % (Auto) (0.3-3.8) % Neut # (Auto) (1.7-6.9) x10-3/uL Lymph # (Auto) (0.5-4.5) x10-3/uL [place] # (Auto) (0.0-1.2) x10-3/uL Eos # (Auto) (0.0-0.6) x10-3/uL Baso # (Auto) (0.0-0.3) x10-3/uL Add Manual Diff Yes Neutrophils % (Manual) 79 (46-82) % Band Neutrophils % 1 (0-6) % Lymphocytes % (Manual) 16 (13-37) % Monocytes % (Manual) 4 (4-12) % D-Dimer, Quantitative (0.0-0.59) mg/LFEU Sodium (135-145) mmol/L Potassium (3.5-5.3) mmol/L Chloride (100-110) mmol/L Carbon Dioxide (21-32) mmol/L BUN (7-18) mg/dL Creatinine (0.70-1.30) mg/dL Est Cr Clr Drug Dosing Estimated GFR (MDRD) (>60) BUN/Creatinine Ratio (9-20) Glucose (80-116) mg/dL Calcium (8.6-10.2) mg/dL Total Bilirubin (0.1-1.3) mg/dL AST (5-25) IU/L ALT (12-36) U/L Alkaline Phosphatase (56-112) IU/L Troponin I 13.0 (4.0-60.3) pg/mL NT-Pro-B Natriuret Pep 392 (<=450) pg/mL Total Protein (6.0-8.0) g/dL Albumin (3.2-4.6) g/dL Globulin g/dL Albumin/Globulin Ratio SARS-CoV-2 RNA (ANDRE) (NEGATIVE) Result Diagrams: 02/08/21 06:00 02/08/21 06:00 Sepsis Event Note - Evaluation Sepsis Screening Result: No Definite Risk - Focused Exam Vital Signs: Vital Signs Temp Pulse Pulse Resp BP BP Pulse Ox 02/08/21 08:51 97.8 F 69 24 H 119/74 91 L 02/08/21 03:47 97.0 F 67 20 115/67 93 L 02/07/21 23:37 97.7 F 75 22 H 146/97 H 92 L 02/07/21 21:50 85 144/81 H - Problem List & Annotations (1) SOBOE (shortness of breath on exertion) SNOMED Code(s): 72726692 Code(s): R06.02 - SHORTNESS OF BREATH Status: Acute Current Visit: Yes (2) Pneumonitis SNOMED Code(s): 681500169 Code(s): J18.9 - PNEUMONIA, UNSPECIFIED ORGANISM Status: Acute Current Visit: Yes - Problem List Review Problem List Initiated/Reviewed/Updated: Yes - My Orders Last 24 Hours: My Active Orders 02/07/21 21:30 Piperacillin/Tazobactam [Zosyn] 3.375 gm Sodium Chloride 0.9% [Normal Saline] 50 ml IV Q6H 02/07/21 21:45 atenoloL [Tenormin] 25 mg PO BEDTIME 02/07/21 22:00 Simvastatin [Zocor] 10 mg PO BEDTIME 02/08/21 09:00 Furosemide [Lasix] 20 mg IVPUSH BIDDIURETIC Potassium Chloride [Klor-Con M20] 20 meq PO BID Saccharomyces Boulardii [Florastor] 250 mg PO BID 02/08/21 09:16 CXR [Chest 2V] [CR] Routine 02/08/21 09:17 Echo Comp w Cont [US] Routine 02/08/21 21:00 Multivitamins w-Iron/Ca/FA/Min [Thera M Plus] 1 tab PO BEDTIME 02/09/21 05:11 BASIC METABOLIC PANEL,BMP [CHEM] AM CBC WITH AUTO DIFF [HEME] AM - Plan Plan:: We are treating him for Pneumonitis,possibly COPD and CHF. Obtain Echo today,and repeat CXR. Continue Zosyn. His creatinine needs close monitoring,with BMP in AM,,decrease dose of Lasix and DC Zaroxolyn.Replace Denise
[2021-02-08] MEDS ORDERED: methylPREDNISolone Sodium Succinate 125 MG/2 ML SDV IVPUSH SCH (10:00)
[2021-02-08] MEDS ORDERED: Perflutren Lipid Microspheres 2.2 MG/2 ML SDV IVPUSH ONE (11:19)
[2021-02-08] MEDS: methylPREDNISolone Sodium Succinate 125 MG/2 ML SDV IVPUSH SCH ×2 (11:45→18:56)
[2021-02-08] MEDS: Enoxaparin 40 MG/0.4 ML Syringe SUBCUT SCH (14:08)
[2021-02-08] MEDS: Albuterol/Ipratropium 3.0-0.5 MG/3 ML Neb Soln NEB PRN ×2 (15:09→21:23)
--- NOTE | 2021-02-08 16:37 | CR ---
CHEST TWO VIEWS 7231 INDICATION: Cough. PA and lateral views of the chest were obtained 02/08/2021 and compared with 02/07/2021 and 11/17/2019. The appearance of pulmonary vascular congestion has markedly decreased compared with the previous examination. There remains infiltration in the lower lung wu, especially on the left, and at the lung bases, especially on the left. No other change or new acute process was identified. Overlying snaps and EKG leads are noted. The heart size is difficult to evaluate with a poor inspiration but may be somewhat enlarged with the aorta tortuous and calcified in the arch. Mild degenerative changes noted in the lower and middle thoracic spine. IMPRESSION: Improved appearance of the chest overall but with continued areas of infiltrate at the lower lung wu, especially on the left. There appears to be resolution of previous CHF and lung edema. The infiltrates present would be compatible with covid-19 pneumonia but should be correlated clinically. MTDD
[2021-02-08] MEDS: Atenolol 25 MG Tab PO SCH (20:22)
[2021-02-08] MEDS: Multivitamins with Iron/Calcium/Folic Acid/Minerals Tab PO SCH (20:22)
[2021-02-08] MEDS: Simvastatin 10 MG Tab PO SCH (20:22)
[2021-02-09] MEDS: methylPREDNISolone Sodium Succinate 125 MG/2 ML SDV IVPUSH SCH ×3 (02:59→17:58)
[2021-02-09] MEDS: Piperacillin/Tazobactam 3.375 GM in Sodium Chloride 0.9% 50 ML IV SCH ×2 (03:11→09:49)
[2021-02-09] MEDS: Sodium Chloride 0.9% 10 ML Syringe FLUSH PRN ×4 (03:50→22:10)
[2021-02-09] MEDS: Albuterol/Ipratropium 3.0-0.5 MG/3 ML Neb Soln NEB PRN ×3 (08:12→21:37)
[2021-02-09] MEDS: Furosemide 20 MG/2 ML VIAL IVPUSH SCH (08:54)
[2021-02-09] MEDS: Potassium Chloride 20 MEQ Tab.ER PO SCH ×2 (08:57→21:20)
[2021-02-09] MEDS: Saccharomyces Boulardii (Probiotic) 250 MG Cap PO SCH ×2 (08:57→21:20)
--- NOTE | 2021-02-09 09:04 | PCM.PN ---
- General Info Date of Service: 02/09/21 Functional Status: Reports: Pain Controlled - Review of Systems General: Reports: No Symptoms HEENT: Reports: No Symptoms Pulmonary: Reports: Shortness of Breath Cardiovascular: Reports: Dyspnea on Exertion Gastrointestinal: Reports: No Symptoms Genitourinary: Reports: No Symptoms Musculoskeletal: Reports: No Symptoms - Patient Data Vitals - Most Recent: Last Vital Signs Temp 97.4 F 02/09/21 03:26 Pulse 61 02/09/21 03:26 Resp 20 02/09/21 03:26 BP 115/66 02/09/21 03:26 Pulse Ox 93 L 02/09/21 03:26 Weight - Most Recent: 106.708 kg Lab Results Last 24 Hours: Laboratory Results - last 24 hr 02/09/21 02/09/21 Range/Units 07:05 07:05 WBC 13.8 H (3.2-10.1) x10-3/uL RBC 5.47 (3.90-5.90) x10(6)uL Hgb 16.5 (12.9-17.7) g/dL Hct 49.0 (38.3-50.1) % MCV 89.5 (80.8-98.7) fL MCH 30.1 (27.0-33.3) pg MCHC 33.6 (28.7-35.3) g/dL RDW 14.5 (12.4-15.0) % Plt Count 313 (117-477) x10(3)uL MPV 7.6 (6.7-11.0) fL Neut % (Auto) 86.3 H (40.3-71.8) % Lymph % (Auto) 11.2 L (15.8-45.3) % [place] % (Auto) 2.5 L (5.5-15.2) % Eos % (Auto) 0.0 L (0.1-6.8) % Baso % (Auto) 0.0 L (0.3-3.8) % Neut # (Auto) 11.9 H (1.7-6.9) x10-3/uL Lymph # (Auto) 1.5 (0.5-4.5) x10-3/uL [place] # (Auto) 0.3 (0.0-1.2) x10-3/uL Eos # (Auto) 0.0 (0.0-0.6) x10-3/uL Baso # (Auto) 0.0 (0.0-0.3) x10-3/uL Sodium 140 (135-145) mmol/L Potassium 4.0 (3.5-5.3) mmol/L Chloride 97 L (100-110) mmol/L Carbon Dioxide 30 (21-32) mmol/L BUN 48 H D (7-18) mg/dL Creatinine 1.9 H (0.70-1.30) mg/dL Est Cr Clr Drug Dosing 32.56 mL/min Estimated GFR (MDRD) 35 L (>60) BUN/Creatinine Ratio 25.3 H (9-20) Glucose 255 H (80-116) mg/dL Calcium 9.6 (8.6-10.2) mg/dL Med Orders - Current: Current Medications Albuterol/Ipratropium (Albuterol/Ipratropium 3.0-0.5 Mg/3 Ml Neb Soln) 3 ml NEB QID PRN PRN Reason: DYSPNEA Last Admin: 02/09/21 08:12 Dose: 3 ml Documented by: Atenolol (Atenolol 25 Mg Tab) 25 mg PO BEDTIME [facility] Last Admin: 02/08/21 20:22 Dose: 25 mg Documented by: Enoxaparin Sodium (Enoxaparin 40 Mg/0.4 Ml Syringe) 40 mg SUBCUT Q24H [facility] Last Admin: 02/08/21 14:08 Dose: 40 mg Documented by: Furosemide (Furosemide 20 Mg/2 Ml Vial) 20 mg IVPUSH BIDDIURETIC [facility] Last Admin: 02/09/21 08:54 Dose: 20 mg Documented by: Piperacillin Sod/Tazobactam (Sod 3.375 gm/ Sodium Chloride) 50 mls @ 100 mls/hr IV Q6H [facility] Last Admin: 02/09/21 03:11 Dose: 100 mls/hr Documented by: Methylprednisolone Sodium Succinate (Methylprednisolone Sodium Succinate 125 Mg/2 Ml Sdv) 125 mg IVPUSH Q8H [facility] Last Admin: 02/09/21 02:59 Dose: 125 mg Documented by: Multivitamins/Minerals (Multivitamins With Iron/Calcium/Folic Acid/Minerals Tab) 1 tab PO BEDTIME [facility] Last Admin: 02/08/21 20:22 Dose: 1 tab Documented by: Ondansetron HCl (Ondansetron 4 Mg/2 Ml Sdv) 4 mg IV Q4H PRN PRN Reason: Nausea/Vomiting Potassium Chloride (Potassium Chloride 20 Meq Tab.Er) 20 meq PO BID [facility] Last Admin: 02/09/21 08:57 Dose: 20 meq Documented by: Saccharomyces Boulardii (Saccharomyces Boulardii (Probiotic) 250 Mg Cap) 250 mg PO BID [facility] Last Admin: 02/09/21 08:57 Dose: 250 mg Documented by: Senna/Docusate Sodium (Docusate Sodium/Sennosides 50-8.6 Mg Tab) 1 tab PO BID PRN PRN Reason: Constipation Simvastatin (Simvastatin 10 Mg Tab) 10 mg PO BEDTIME [facility] Last Admin: 02/08/21 20:22 Dose: 10 mg Documented by: Sodium Chloride (Sodium Chloride 0.9% 10 Ml Syringe) 10 ml FLUSH ASDIRECTED PRN PRN Reason: Keep Vein Open Last Admin: 02/09/21 03:50 Dose: 10 ml Documented by: Discontinued Medications Albuterol/Ipratropium (Albuterol/Ipratropium 3.0-0.5 Mg/3 Ml Neb Soln) 3 ml NEB NOW STA Stop: 02/07/21 11:15 Last Admin: 02/07/21 11:55 Dose: 3 ml Documented by: Albuterol/Ipratropium (Albuterol/Ipratropium 3.0-0.5 Mg/3 Ml Neb Soln) 3 ml NEB QID [facility] Last Admin: 02/07/21 15:19 Dose: Not Given Documented by: Furosemide (Furosemide 40 Mg/4 Ml Vial) 40 mg IVPUSH NOW ONE Stop: 02/07/21 13:29 Last Admin: 02/07/21 13:36 Dose: 40 mg Documented by: Furosemide (Furosemide 40 Mg/4 Ml Vial) 40 mg IVPUSH BID [facility] Furosemide (Furosemide 40 Mg/4 Ml Vial) 40 mg IVPUSH BID@0900,1900 [facility] Last Admin: 02/07/21 20:04 Dose: 40 mg Documented by: Furosemide (Furosemide 20 Mg/2 Ml Vial) 20 mg IVPUSH DAILY [facility] Iopamidol (Iopamidol 755 Mg/Ml 100 Ml Bottle) 100 ml IV . DIRECTED ONE Stop: 02/07/21 12:15 Last Admin: 02/07/21 12:37 Dose: 100 ml Documented by: Methylprednisolone Sodium Succinate (Methylprednisolone Sodium Succinate 125 Mg/2 Ml Sdv) 125 mg IVPUSH NOW STA Stop: 02/07/21 11:15 Last Admin: 02/07/21 11:45 Dose: 125 mg Documented by: Metolazone (Metolazone 5 Mg Tab) 5 mg PO ONETIME ONE Stop: 02/07/21 13:27 Last Admin: 02/07/21 13:36 Dose: 5 mg Documented by: Metolazone (Metolazone 2.5 Mg Tab) 2.5 mg PO DAILY@0800 [facility] Last Admin: 02/08/21 09:00 Dose: 2.5 mg Documented by: Perflutren Lipid Microsphere (Perflutren Lipid Microspheres 2.2 Mg/2 Ml Sdv) 2.2 mg IVPUSH PREPRO ONE Stop: 02/08/21 11:20 Last Admin: 02/08/21 11:39 Dose: 2.2 mg Documented by: - Exam Quality Assessment: Supplemental Oxygen General: Alert HEENT: Pupils Equal Neck: Supple Lungs: Crackles, Rales Cardiovascular: Regular Rate - Patient Data Lab Results Last 24 hrs: Laboratory Results - last 24 hr 02/09/21 02/09/21 Range/Units 07:05 07:05 WBC 13.8 H (3.2-10.1) x10-3/uL RBC 5.47 (3.90-5.90) x10(6)uL Hgb 16.5 (12.9-17.7) g/dL Hct 49.0 (38.3-50.1) % MCV 89.5 (80.8-98.7) fL MCH 30.1 (27.0-33.3) pg MCHC 33.6 (28.7-35.3) g/dL RDW 14.5 (12.4-15.0) % Plt Count 313 (117-477) x10(3)uL MPV 7.6 (6.7-11.0) fL Neut % (Auto) 86.3 H (40.3-71.8) % Lymph % (Auto) 11.2 L (15.8-45.3) % [place] % (Auto) 2.5 L (5.5-15.2) % Eos % (Auto) 0.0 L (0.1-6.8) % Baso % (Auto) 0.0 L (0.3-3.8) % Neut # (Auto) 11.9 H (1.7-6.9) x10-3/uL Lymph # (Auto) 1.5 (0.5-4.5) x10-3/uL [place] # (Auto) 0.3 (0.0-1.2) x10-3/uL Eos # (Auto) 0.0 (0.0-0.6) x10-3/uL Baso # (Auto) 0.0 (0.0-0.3) x10-3/uL Sodium 140 (135-145) mmol/L Potassium 4.0 (3.5-5.3) mmol/L Chloride 97 L (100-110) mmol/L Carbon Dioxide 30 (21-32) mmol/L BUN 48 H D (7-18) mg/dL Creatinine 1.9 H (0.70-1.30) mg/dL Est Cr Clr Drug Dosing 32.56 mL/min Estimated GFR (MDRD) 35 L (>60) BUN/Creatinine Ratio 25.3 H (9-20) Glucose 255 H (80-116) mg/dL Calcium 9.6 (8.6-10.2) mg/dL Result Diagrams: 02/09/21 07:05 02/09/21 07:05 Sepsis Event Note - Evaluation Sepsis Screening Result: No Definite Risk - Focused Exam Vital Signs: Vital Signs Temp Pulse Resp BP Pulse Ox Pulse Ox 02/09/21 03:26 97.4 F 61 20 115/66 93 L 02/09/21 00:00 94 L 94 L 02/08/21 21:23 68 92 L - Problem List & Annotations (1) SOBOE (shortness of breath on exertion) SNOMED Code(s): 63379022 Code(s): R06.02 - SHORTNESS OF BREATH Status: Acute Current Visit: Yes (2) Pneumonitis SNOMED Code(s): 294462423 Code(s): J18.9 - PNEUMONIA, UNSPECIFIED ORGANISM Status: Acute Current Visit: Yes (3) COPD (chronic obstructive pulmonary disease) SNOMED Code(s): 83189588 Code(s): J44.9 - CHRONIC OBSTRUCTIVE PULMONARY DISEASE, UNSPECIFIED Status: Acute Current Visit: Yes Qualifiers: COPD type: chronic bronchitis (4) CHF (congestive heart failure) SNOMED Code(s): 46959527 Code(s): I50.9 - HEART FAILURE, UNSPECIFIED Status: Acute Current Visit: Yes Qualifiers: Heart failure type: diastolic (5) HTN (hypertension) SNOMED Code(s): 30618920 Code(s): I10 - ESSENTIAL (PRIMARY) HYPERTENSION Status: Chronic Current V isit: Yes Qualifiers: Hypertension type: essential hypertension Qualified Code(s): I10 - Essential (primary) hypertension (6) Obesity SNOMED Code(s): 987257293, 934524661 Code(s): E66.9 - OBESITY, UNSPECIFIED Status: Acute Current Visit: Yes Qualifiers: Obesity type: due to excess calories (7) GEORGE (acute kidney injury) SNOMED Code(s): 50005733, 54660005 Code(s): N17.9 - ACUTE KIDNEY FAILURE, UNSPECIFIED Status: Acute Current Visit: Yes - Problem List Review Problem List Initiated/Reviewed/Updated: Yes - My Orders Last 24 Hours: My Active Orders 02/08/21 09:00 Furosemide [Lasix] 20 mg IVPUSH BIDDIURETIC Potassium Chloride [Klor-Con M20] 20 meq PO BID Saccharomyces Boulardii [Florastor] 250 mg PO BID 02/08/21 09:17 Echo Comp w Cont [US] Routine 02/08/21 10:00 methylPREDNISolone Sod Succ [Solu-MEDROL] 125 mg IVPUSH Q8H 02/08/21 21:00 Multivitamins w-Iron/Ca/FA/Min [Thera M Plus] 1 tab PO BEDTIME 02/10/21 05:11 BASIC METABOLIC PANEL,BMP [CHEM] AM CBC WITH AUTO DIFF [HEME] AM - Plan Plan:: His X ray shows improved picture,from pulmonary edema. Will continue Lasix at 20 mg ,but oral.Continue Abx IV.
[2021-02-09] MEDS: Enoxaparin 40 MG/0.4 ML Syringe SUBCUT SCH (14:25)
[2021-02-09] MEDS: Piperacillin/Tazobactam 2.25 GM in Sodium Chloride 0.9% 50 ML IV SCH ×2 (15:44→21:36)
[2021-02-09] MEDS: Atenolol 25 MG Tab PO SCH (21:20)
[2021-02-09] MEDS: Multivitamins with Iron/Calcium/Folic Acid/Minerals Tab PO SCH (21:20)
[2021-02-09] MEDS: Simvastatin 10 MG Tab PO SCH (21:20)
[2021-02-09] MEDS: Furosemide 20 MG Tab PO SCH (21:21)
[2021-02-10] MEDS: methylPREDNISolone Sodium Succinate 125 MG/2 ML SDV IVPUSH SCH ×3 (03:00→18:39)
[2021-02-10] MEDS: Sodium Chloride 0.9% 10 ML Syringe FLUSH PRN ×6 (03:05→18:39)
[2021-02-10] MEDS: Piperacillin/Tazobactam 2.25 GM in Sodium Chloride 0.9% 50 ML IV SCH ×4 (03:14→20:59)
[2021-02-10] MEDS: Albuterol/Ipratropium 3.0-0.5 MG/3 ML Neb Soln NEB PRN ×3 (07:01→20:59)
[2021-02-10 08:27] LABS: HEMOGLOBIN A1C 7.1 % (<5.7)
[2021-02-10] MEDS: Furosemide 20 MG Tab PO SCH ×2 (09:02→20:54)
[2021-02-10] MEDS: Potassium Chloride 20 MEQ Tab.ER PO SCH ×2 (09:02→20:54)
[2021-02-10] MEDS: Saccharomyces Boulardii (Probiotic) 250 MG Cap PO SCH ×2 (09:02→20:54)
--- NOTE | 2021-02-10 10:10 | PCM.PN ---
- General Info Date of Service: 02/10/21 Subjective Update: Baltazar feels better today. He is able to ambulate some,and his oxygen needs are down to 2L. He is down 7 lbs today. Cough is present,productive.Noted to have hgh blood sugars - Review of Systems HEENT: Reports: No Symptoms Pulmonary: Reports: Cough Cardiovascular: Reports: No Symptoms Gastrointestinal: Reports: No Symptoms - Patient Data Vitals - Most Recent: Last Vital Signs Temp 97.9 F 02/10/21 03:36 Pulse 71 02/10/21 07:01 Resp 20 02/10/21 03:36 BP 119/66 02/10/21 03:36 Pulse Ox 93 L 02/10/21 07:01 Weight - Most Recent: 106.708 kg Lab Results Last 24 Hours: Laboratory Results - last 24 hr 02/10/21 02/10/21 02/10/21 Range/Units 06:20 06:40 06:40 WBC 14.4 H (3.2-10.1) x10-3/uL RBC 5.40 (3.90-5.90) x10(6)uL Hgb 16.1 (12.9-17.7) g/dL Hct 48.4 (38.3-50.1) % MCV 89.6 (80.8-98.7) fL MCH 29.9 (27.0-33.3) pg MCHC 33.4 (28.7-35.3) g/dL RDW 14.4 (12.4-15.0) % Plt Count 303 (117-477) x10(3)uL MPV 7.6 (6.7-11.0) fL Add Manual Diff Yes Neutrophils % (Manual) 87 H (46-82) % Lymphocytes % (Manual) 9 L (13-37) % Monocytes % (Manual) 4 (4-12) % Sodium 139 (135-145) mmol/L Potassium 3.8 (3.5-5.3) mmol/L Chloride 97 L (100-110) mmol/L Carbon Dioxide 32 (21-32) mmol/L BUN 48 H (7-18) mg/dL Creatinine 1.6 H (0.70-1.30) mg/dL Est Cr Clr Drug Dosing 38.66 mL/min Estimated GFR (MDRD) 42 L (>60) BUN/Creatinine Ratio 30.0 H (9-20) Glucose 303 H (80-116) mg/dL Hemoglobin A1c 7.1 H (<5.7) % Calcium 9.4 (8.6-10.2) mg/dL Med Orders - Current: Current Medications Albuterol/Ipratropium (Albuterol/Ipratropium 3.0-0.5 Mg/3 Ml Neb Soln) 3 ml NEB QID PRN PRN Reason: DYSPNEA Last Admin: 02/10/21 07:01 Dose: 3 ml Documented by: Enoxaparin Sodium (Enoxaparin 40 Mg/0.4 Ml Syringe) 40 mg SUBCUT Q24H [facility] Last Admin: 02/09/21 14:25 Dose: 40 mg Documented by: Furosemide (Furosemide 20 Mg Tab) 20 mg PO BID [facility] Last Admin: 02/10/21 09:02 Dose: 20 mg Documented by: Piperacillin Sod/Tazobactam (Sod 2.25 gm/ Sodium Chloride) 50 mls @ 100 mls/hr IV Q6H [facility] Last Admin: 02/10/21 09:06 Dose: 100 mls/hr Documented by: Methylprednisolone Sodium Succinate (Methylprednisolone Sodium Succinate 125 Mg/2 Ml Sdv) 125 mg IVPUSH Q8H [facility] Last Admin: 02/10/21 03:00 Dose: 125 mg Documented by: Multivitamins/Minerals (Multivitamins With Iron/Calcium/Folic Acid/Minerals Tab) 1 tab PO BEDTIME [facility] Last Admin: 02/09/21 21:20 Dose: 1 tab Documented by: Ondansetron HCl (Ondansetron 4 Mg/2 Ml Sdv) 4 mg IV Q4H PRN PRN Reason: Nausea/Vomiting Potassium Chloride (Potassium Chloride 20 Meq Tab.Er) 20 meq PO BID [facility] Last Admin: 02/10/21 09:02 Dose: 20 meq Documented by: Saccharomyces Boulardii (Saccharomyces Boulardii (Probiotic) 250 Mg Cap) 250 mg PO BID [facility] Last Admin: 02/10/21 09:02 Dose: 250 mg Documented by: Senna/Docusate Sodium (Docusate Sodium/Sennosides 50-8.6 Mg Tab) 1 tab PO BID PRN PRN Reason: Constipation Simvastatin (Simvastatin 10 Mg Tab) 10 mg PO BEDTIME [facility] Last Admin: 02/09/21 21:20 Dose: 10 mg Documented by: Sodium Chloride (Sodium Chloride 0.9% 10 Ml Syringe) 10 ml FLUSH ASDIRECTED PRN PRN Reason: Keep Vein Open Last Admin: 02/10/21 09:30 Dose: 10 ml Documented by: Discontinued Medications Albuterol/Ipratropium (Albuterol/Ipratropium 3.0-0.5 Mg/3 Ml Neb Soln) 3 ml NEB NOW STA Stop: 02/07/21 11:15 Last Admin: 02/07/21 11:55 Dose: 3 ml Documented by: Albuterol/Ipratropium (Albuterol/Ipratropium 3.0-0.5 Mg/3 Ml Neb Soln) 3 ml NEB QID [facility] Last Admin: 02/07/21 15:19 Dose: Not Given Documented by: Atenolol (Atenolol 25 Mg Tab) 25 mg PO BEDTIME [facility] Last Admin: 02/09/21 21:20 Dose: 25 mg Documented by: Furosemide (Furosemide 40 Mg/4 Ml Vial) 40 mg IVPUSH NOW ONE Stop: 02/07/21 13:29 Last Admin: 02/07/21 13:36 Dose: 40 mg Documented by: Furosemide (Furosemide 40 Mg/4 Ml Vial) 40 mg IVPUSH BID [facility] Furosemide (Furosemide 40 Mg/4 Ml Vial) 40 mg IVPUSH BID@0900,1900 [facility] Last Admin: 02/07/21 20:04 Dose: 40 mg Documented by: Furosemide (Furosemide 20 Mg/2 Ml Vial) 20 mg IVPUSH DAILY [facility] Furosemide (Furosemide 20 Mg/2 Ml Vial) 20 mg IVPUSH BIDDIURETIC [facility] Last Admin: 02/09/21 08:54 Dose: 20 mg Documented by: Piperacillin Sod/Tazobactam (Sod 3.375 gm/ Sodium Chloride) 50 mls @ 100 mls/hr IV Q6H [facility] Last Admin: 02/09/21 09:49 Dose: 100 mls/hr Documented by: Iopamidol (Iopamidol 755 Mg/Ml 100 Ml Bottle) 100 ml IV . DIRECTED ONE Stop: 02/07/21 12:15 Last Admin: 02/07/21 12:37 Dose: 100 ml Documented by: Methylprednisolone Sodium Succinate (Methylprednisolone Sodium Succinate 125 Mg/2 Ml Sdv) 125 mg IVPUSH NOW STA Stop: 02/07/21 11:15 Last Admin: 02/07/21 11:45 Dose: 125 mg Documented by: Metolazone (Metolazone 5 Mg Tab) 5 mg PO ONETIME ONE Stop: 02/07/21 13:27 Last Admin: 02/07/21 13:36 Dose: 5 mg Documented by: Metolazone (Metolazone 2.5 Mg Tab) 2.5 mg PO DAILY@0800 [facility] Last Admin: 02/08/21 09:00 Dose: 2.5 mg Documented by: Perflutren Lipid Microsphere (Perflutren Lipid Microspheres 2.2 Mg/2 Ml Sdv) 2.2 mg IVPUSH PREPRO ONE Stop: 02/08/21 11:20 Last Admin: 02/08/21 11:39 Dose: 2.2 mg Documented by: - Exam Quality Assessment: Supplemental Oxygen General: Alert HEENT: Pupils Equal Lungs: Crackles, Rales Cardiovascular: Regular Rate - Patient Data Lab Results Last 24 hrs: Laboratory Results - last 24 hr 02/10/21 02/10/21 02/10/21 Range/Units 06:20 06:40 06:40 WBC 14.4 H (3.2-10.1) x10-3/uL RBC 5.40 (3.90-5.90) x10(6)uL Hgb 16.1 (12.9-17.7) g/dL Hct 48.4 (38.3-50.1) % MCV 89.6 (80.8-98.7) fL MCH 29.9 (27.0-33.3) pg MCHC 33.4 (28.7-35.3) g/dL RDW 14.4 (12.4-15.0) % Plt Count 303 (117-477) x10(3)uL MPV 7.6 (6.7-11.0) fL Add Manual Diff Yes Neutrophils % (Manual) 87 H (46-82) % Lymphocytes % (Manual) 9 L (13-37) % Monocytes % (Manual) 4 (4-12) % Sodium 139 (135-145) mmol/L Potassium 3.8 (3.5-5.3) mmol/L Chloride 97 L (100-110) mmol/L Carbon Dioxide 32 (21-32) mmol/L BUN 48 H (7-18) mg/dL Creatinine 1.6 H (0.70-1.30) mg/dL Est Cr Clr Drug Dosing 38.66 mL/min Estimated GFR (MDRD) 42 L (>60) BUN/Creatinine Ratio 30.0 H (9-20) Glucose 303 H (80-116) mg/dL Hemoglobin A1c 7.1 H (<5.7) % Calcium 9.4 (8.6-10.2) mg/dL Result Diagrams: 02/10/21 06:40 02/10/21 06:40 Sepsis Event Note - Evaluation Sepsis Screening Result: No Definite Risk - Focused Exam Vital Signs: Vital Signs Temp Pulse Resp BP Pulse Ox Pulse Ox 02/10/21 07:01 71 93 L 02/10/21 03:36 97.9 F 61 20 119/66 95 - Problem List & Annotations (1) SOBOE (shortness of breath on exertion) SNOMED Code(s): 80555426 Code(s): R06.02 - SHORTNESS OF BREATH Status: Acute Current Visit: Yes (2) Pneumonitis SNOMED Code(s): 807184768 Code(s): J18.9 - PNEUMONIA, UNSPECIFIED ORGANISM Status: Acute Current Visit: Yes (3) COPD (chronic obstructive pulmonary disease) SNOMED Code(s): 54387760 Code(s): J44.9 - CHRONIC OBSTRUCTIVE PULMONARY DISEASE, UNSPECIFIED Status: Acute Current Visit: Yes Qualifiers: COPD type: chronic bronchitis (4) CHF (congestive heart failure) SNOMED Code(s): 86699261 Code(s): I50.9 - HEART FAILURE, UNSPECIFIED Status: Acute Current Visit: Yes Qualifiers: Heart failure type: diastolic (5) HTN (hypertension) SNOMED Code(s): 47397734 Code(s): I10 - ESSENTIAL (PRIMARY) HYPERTENSION Status: Chronic Current Visit: Yes Qualifiers: Hypertension type: essential hypertension Qualified Code(s): I10 - Essential (primary) hypertension (6) Obesity SNOMED Code(s): 468351712, 923707415 Code(s): E66.9 - OBESITY, UNSPECIFIED Status: Acute Current Visit: Yes Qualifiers: Obesity type: due to excess calories (7) GEORGE (acute kidney injury) SNOMED Code(s): 10867366, 89734000 Code(s): N17.9 - ACUTE KIDNEY FAILURE, UNSPECIFIED Status: Acute Current Visit: Yes (8) Diabetes type 2, controlled SNOMED Code(s): 50462480, 706153094 Code(s): E11.9 - TYPE 2 DIABETES MELLITUS WITHOUT COMPLICATIONS Status: Acute Current Visit: Yes Qualifiers: Diabetes mellitus intermodal owner operator truck driver insulin use: without intermodal owner operator truck driver use Diabetes mellitus complication status: without complication Qualified Code(s): E11.9 - Type 2 diabetes mellitus without complications - Problem List Review Problem List Initiated/Reviewed/Updated: Yes - My Orders Last 24 Hours: My Active Orders 02/09/21 15:30 Piperacillin/Tazobactam [Zosyn] 2.25 gm Sodium Chloride 0.9% [Normal Saline] 50 ml IV Q6H 02/09/21 21:00 Furosemide [Lasix] 20 mg PO BID 02/11/21 05:11 BASIC METABOLIC PANEL,BMP [CHEM] AM CBC WITH AUTO DIFF [HEME] AM - Plan Plan:: Start metformin. Continue IV Zosyn and IV Solu-Medrol today, possibly transition tomorrow to PO for preparation of discharge over the weekend. Continue to wean off oxygen.
[2021-02-10] MEDS: Enoxaparin 40 MG/0.4 ML Syringe SUBCUT SCH (13:57)
[2021-02-10] MEDS: metFORMIN 500 MG Tab PO SCH (18:41)
[2021-02-10] MEDS: Simvastatin 10 MG Tab PO SCH (20:54)
[2021-02-10] MEDS: Multivitamins with Iron/Calcium/Folic Acid/Minerals Tab PO SCH (20:54)
[2021-02-11] MEDS: methylPREDNISolone Sodium Succinate 125 MG/2 ML SDV IVPUSH SCH ×2 (02:41→15:27)
[2021-02-11] MEDS: Sodium Chloride 0.9% 10 ML Syringe FLUSH PRN ×3 (02:56→21:46)
[2021-02-11] MEDS: Piperacillin/Tazobactam 2.25 GM in Sodium Chloride 0.9% 50 ML IV SCH ×4 (02:57→20:54)
[2021-02-11] MEDS: Furosemide 20 MG Tab PO SCH ×2 (09:07→14:22)
[2021-02-11] MEDS: metFORMIN 500 MG Tab PO SCH ×2 (09:07→19:05)
[2021-02-11] MEDS: Saccharomyces Boulardii (Probiotic) 250 MG Cap PO SCH ×2 (09:07→20:53)
[2021-02-11] MEDS: Potassium Chloride 20 MEQ Tab.ER PO SCH ×2 (09:08→20:52)
[2021-02-11] MEDS: Albuterol/Ipratropium 3.0-0.5 MG/3 ML Neb Soln NEB PRN (09:18)
[2021-02-11] MEDS: Budesonide 0.5 MG/2 ML Neb Susp INH SCH ×2 (11:01→20:53)
--- NOTE | 2021-02-11 11:55 | PCM.PN ---
- General Info Date of Service: 02/11/21 Subjective Update: Baltazar states breathing is improved, down 8 lbs from admission, states he started losing weight intentionally in Nov, his weight was 258 then. He thinks he was 24 1 before he came in. He has been on and off steroids for the past 6 weeks, whenever he tapers off then he starts having problems. CT angio did not show any PE, bilateral infiltrates questioned fibrosis vs pulmonary edema with CHF. Echo showed EF of 61%, he has diuresed 8 lbs since starting Lasix. He was started on Albuterol in clinic with some benefit. He is due to see Pulmonology on February 17. He has been on Zosyn since admission, WBC have gone down. Been on SoluMedrol 125 mg q8h since admission. He desaturated today with ambulation down to 80%, would qualify for home oxygen so this was ordered. Functional Status: Reports: Tolerating Diet, Ambulating, Urinating, Incentive Spirometry. Denies: New Symptoms - Review of Systems Pulmonary: Reports: Shortness of Breath, Cough (nonproductive) Cardiovascular: Reports: No Symptoms Gastrointestinal: Reports: No Symptoms Genitourinary: Reports: No Symptoms Musculoskeletal: Reports: No Symptoms Skin: Reports: No Symptoms - Patient Data Vitals - Most Recent: Last Vital Signs Temp 97.5 F 02/11/21 08:00 Pulse 79 02/11/21 08:00 Resp 18 02/11/21 08:00 BP 131/74 02/11/21 08:00 Pulse Ox 95 02/11/21 11:39 Weight - Most Recent: 233 lb Lab Results Last 24 Hours: Laboratory Results - last 24 hr 02/11/21 02/11/21 02/11/21 Range/Units 06:15 06:15 06:15 WBC 11.8 H (3.2-10.1) x10-3/uL RBC 5.16 (3.90-5.90) x10(6)uL Hgb 15.2 (12.9-17.7) g/dL Hct 46.1 (38.3-50.1) % MCV 89.4 (80.8-98.7) fL MCH 29.5 (27.0-33.3) pg MCHC 33.0 (28.7-35.3) g/dL RDW 14.1 (12.4-15.0) % Plt Count 240 (117-477) x10(3)uL MPV 8.0 (6.7-11.0) fL Add Manual Diff Yes Neutrophils % (Manual) 88 H (46-82) % Lymphocytes % (Manual) 7 L (13-37) % Monocytes % (Manual) 5 (4-12) % Sodium 138 (135-145) mmol/L Potassium 3.9 (3.5-5.3) mmol/L Chloride 96 L (100-110) mmol/L Carbon Dioxide 33 H (21-32) mmol/L BUN 47 H (7-18) mg/dL Creatinine 1.7 H (0.70-1.30) mg/dL Est Cr Clr Drug Dosing 36.39 mL/min Estimated GFR (MDRD) 39 L (>60) BUN/Creatinine Ratio 27.6 H (9-20) Glucose 315 H (80-116) mg/dL Calcium 8.7 (8.6-10.2) mg/dL NT-Pro-B Natriuret Pep 451 H (<=450) pg/mL Med Orders - Current: Current Medications Albuterol/Ipratropium (Albuterol/Ipratropium 3.0-0.5 Mg/3 Ml Neb Soln) 3 ml NEB QID PRN PRN Reason: DYSPNEA Last Admin: 02/11/21 09:18 Dose: 3 ml Documented by: Budesonide (Budesonide 0.5 Mg/2 Ml Neb Susp) 0.5 mg INH BIDRT [facility] Last Admin: 02/11/21 11:01 Dose: 0.5 mg Documented by: Enoxaparin Sodium (Enoxaparin 40 Mg/0.4 Ml Syringe) 40 mg SUBCUT Q24H [facility] Last Admin: 02/10/21 13:57 Dose: 40 mg Documented by: Furosemide (Furosemide 20 Mg Tab) 20 mg PO BIDDIURETIC [facility] Last Admin: 02/11/21 09:07 Dose: 20 mg Documented by: Piperacillin Sod/Tazobactam (Sod 2.25 gm/ Sodium Chloride) 50 mls @ 100 mls/hr IV Q6H [facility] Stop: 02/13/21 10:30 Last Admin: 02/11/21 09:08 Dose: 100 mls/hr Documented by: Metformin HCl (Metformin 500 Mg Tab) 500 mg PO BIDMEALS [facility] Last Admin: 02/11/21 09:07 Dose: 500 mg Documented by: Methylprednisolone Sodium Succinate (Methylprednisolone Sodium Succinate 125 Mg/2 Ml Sdv) 125 mg IVPUSH Q12H [facility] Stop: 02/12/21 03:31 Multivitamins/Minerals (Multivitamins With Iron/Calcium/Folic Acid/Minerals Tab) 1 tab PO BEDTIME [facility] Last Admin: 02/10/21 20:54 Dose: 1 tab Documented by: Ondansetron HCl (Ondansetron 4 Mg/2 Ml Sdv) 4 mg IV Q4H PRN PRN Reason: Nausea/Vomiting Potassium Chloride (Potassium Chloride 20 Meq Tab.Er) 20 meq PO BID [facility] Last Admin: 02/11/21 09:08 Dose: 20 meq Documented by: Prednisone (Prednisone 20 Mg Tab) 40 mg PO DAILY [facility] Saccharomyces Boulardii (Saccharomyces Boulardii (Probiotic) 250 Mg Cap) 250 mg PO BID [facility] Last Admin: 02/11/21 09:07 Dose: 250 mg Documented by: Senna/Docusate Sodium (Docusate Sodium/Sennosides 50-8.6 Mg Tab) 1 tab PO BID PRN PRN Reason: Constipation Simvastatin (Simvastatin 10 Mg Tab) 10 mg PO BEDTIME [facility] Last Admin: 02/10/21 20:54 Dose: 10 mg Documented by: Sodium Chloride (Sodium Chloride 0.9% 10 Ml Syringe) 10 ml FLUSH ASDIRECTED PRN PRN Reason: Keep Vein Open Last Admin: 02/11/21 03:32 Dose: 10 ml Documented by: Discontinued Medications Albuterol/Ipratropium (Albuterol/Ipratropium 3.0-0.5 Mg/3 Ml Neb Soln) 3 ml NEB NOW STA Stop: 02/07/21 11:15 Last Admin: 02/07/21 11:55 Dose: 3 ml Documented by: Albuterol/Ipratropium (Albuterol/Ipratropium 3.0-0.5 Mg/3 Ml Neb Soln) 3 ml NEB QID [facility] Last Admin: 02/07/21 15:19 Dose: Not Given Documented by: Atenolol (Atenolol 25 Mg Tab) 25 mg PO BEDTIME [facility] Last Admin: 02/09/21 21:20 Dose: 25 mg Documented by: Furosemide (Furosemide 40 Mg/4 Ml Vial) 40 mg IVPUSH NOW ONE Stop: 02/07/21 13:29 Last Admin: 02/07/21 13:36 Dose: 40 mg Documented by: Furosemide (Furosemide 40 Mg/4 Ml Vial) 40 mg IVPUSH BID [facility] Furosemide (Furosemide 40 Mg/4 Ml Vial) 40 mg IVPUSH BID@0900,1900 [facility] Last Admin: 02/07/21 20:04 Dose: 40 mg Documented by: Furosemide (Furosemide 20 Mg/2 Ml Vial) 20 mg IVPUSH DAILY [facility] Furosemide (Furosemide 20 Mg/2 Ml Vial) 20 mg IVPUSH BIDDIURETIC [facility] Last Admin: 02/09/21 08:54 Dose: 20 mg Documented by: Furosemide (Furosemide 20 Mg Tab) 20 mg PO BID [facility] Last Admin: 02/10/21 20:54 Dose: 20 mg Documented by: Piperacillin Sod/Tazobactam (Sod 3.375 gm/ Sodium Chloride) 50 mls @ 100 mls/hr IV Q6H [facility] Last Admin: 02/09/21 09:49 Dose: 100 mls/hr Documented by: Iopamidol (Iopamidol 755 Mg/Ml 100 Ml Bottle) 100 ml IV . DIRECTED ONE Stop: 02/07/21 12:15 Last Admin: 02/07/21 12:37 Dose: 100 ml Documented by: Methylprednisolone Sodium Succinate (Methylprednisolone Sodium Succinate 125 Mg/2 Ml Sdv) 125 mg IVPUSH NOW STA Stop: 02/07/21 11:15 Last Admin: 02/07/21 11:45 Dose: 125 mg Documented by: Methylprednisolone Sodium Succinate (Methylprednisolone Sodium Succinate 125 Mg/2 Ml Sdv) 125 mg IVPUSH Q8H [facility] Last Admin: 02/11/21 02:41 Dose: 125 mg Documented by: Metolazone (Metolazone 5 Mg Tab) 5 mg PO ONETIME [facility] Stop: 02/07/21 13:27 Last Admin: 02/07/21 13:36 Dose: 5 mg Documented by: Metolazone (Metolazone 2.5 Mg Tab) 2.5 mg PO DAILY@0800 [facility] Last Admin: 02/08/21 09:00 Dose: 2.5 mg Documented by: Perflutren Lipid Microsphere (Perflutren Lipid Microspheres 2.2 Mg/2 Ml Sdv) 2.2 mg IVPUSH PREPRO ONE Stop: 02/08/21 11:20 Last Admin: 02/08/21 11:39 Dose: 2.2 mg Documented by: - Exam Quality Assessment: Supplemental Oxygen General: Alert, Oriented, Cooperative, No Acute Distress Lungs: Clear to Auscultation (BUL), Normal Respiratory Effort, Crackles (R>L base). No: Wheezing Cardiovascular: Regular Rate, Regular Rhythm GI/Abdominal Exam: Normal Bowel Sounds, Soft, Non-Tender, No Distention Extremities: Pedal Edema (trace BLE) Peripheral Pulses: 2+: Radial (L), Radial (R) - Patient Data Lab Results Last 24 hrs: Laboratory Results - last 24 hr 02/11/21 02/11/21 02/11/21 Range/Units 06:15 06:15 06:15 WBC 11.8 H (3.2-10.1) x10-3/uL RBC 5.16 (3.90-5.90) x10(6)uL Hgb 15.2 (12.9-17.7) g/dL Hct 46.1 (38.3-50.1) % MCV 89.4 (80.8-98.7) fL MCH 29.5 (27.0-33.3) pg MCHC 33.0 (28.7-35.3) g/dL RDW 14.1 (12.4-15.0) % Plt Count 240 (117-477) x10(3)uL MPV 8.0 (6.7-11.0) fL Add Manual Diff Yes Neutrophils % (Manual) 88 H (46-82) % Lymphocytes % (Manual) 7 L (13-37) % Monocytes % (Manual) 5 (4-12) % Sodium 138 (135-145) mmol/L Potassium 3.9 (3.5-5.3) mmol/L Chloride 96 L (100-110) mmol/L Carbon Dioxide 33 H (21-32) mmol/L BUN 47 H (7-18) mg/dL Creatinine 1.7 H (0.70-1.30) mg/dL Est Cr Clr Drug Dosing 36.39 mL/min Estimated GFR (MDRD) 39 L (>60) BUN/Creatinine Ratio 27.6 H (9-20) Glucose 315 H (80-116) mg/dL Calcium 8.7 (8.6-10.2) mg/dL NT-Pro-B Natriuret Pep 451 H (<=450) pg/mL Result Diagrams: 02/11/21 06:15 02/11/21 06:15 Sepsis Event Note - Evaluation Sepsis Screening Result: No Definite Risk - Focused Exam Vital Signs: Vital Signs Temp Pulse Resp BP Pulse Ox Pulse Ox 02/11/21 11:39 95 02/11/21 10:00 95 02/11/21 08:00 97.5 F 79 18 131/74 95 95 02/11/21 02:30 97.9 F 73 18 137/71 95 - Problem List & Annotations (1) SOBOE (shortness of breath on exertion) SNOMED Code(s): 02207034 Code(s): R06.02 - SHORTNESS OF BREATH Status: Acute Current Visit: Yes (2) Pulmonary edema SNOMED Code(s): 89630527 Code(s): J81.1 - CHRONIC PULMONARY EDEMA Status: Acute Current Visit: Yes (3) Pneumonitis SNOMED Code(s): 270752864 Code(s): J18.9 - PNEUMONIA, UNSPECIFIED ORGANISM Status: Acute Current Visit: Yes (4) GEORGE (acute kidney injury) SNOMED Code(s): 64660293, 59840568 Code(s): N17.9 - ACUTE KIDNEY FAILURE, UNSPECIFIED Status: Acute Current Visit: Yes (5) Hyperglycemia, drug-induced SNOMED Code(s): 784000169 Code(s): R73.9 - HYPERGLYCEMIA, UNSPECIFIED; T50.905A - ADVERSE EFFECT OF UNSP DRUG/MEDS/BIOL SUBST, INIT Status: Acute Current Visit: Yes Annotation/Comment:: most likely due to steriods over the past 6 weeks. Hgb A1c was 7.1, has been on steroid since first part of December. (6) COPD (chronic obstructive pulmonary disease) SNOMED Code(s): 37397245 Code(s): J44.9 - CHRONIC OBSTRUCTIVE PULMONARY DISEASE, UNSPECIFIED Status: Acute Current Visit: Yes Qualifiers: COPD type: chronic bronchitis Annotation/Comment:: questionable, has had freon & anhydrous exposure, further evaluation by pulmonology next week. (7) Obesity SNOMED Code(s): 032762567, 411159660 Code(s): E66.9 - OBESITY, UNSPECIFIED Status: Chronic Current Visit: Yes Qualifiers: Obesity type: due to excess calories (8) HTN (hypertension) SNOMED Code(s): 87593010 Code(s): I10 - ESSENTIAL (PRIMARY) HYPERTENSION Status: Chronic Current Visit: Yes Qualifiers: Hypertension type: essential hypertension Qualified Code(s): I10 - Essential (primary) hypertension - Problem List Review Problem List Initiated/Reviewed/Updated: Yes - My Orders Last 24 Hours: My Active Orders 02/11/21 09:44 Communication Order [RC] Q1HWA Spirometry [RT Incentive Spirometry] [RC] Q1HWA 02/11/21 10:00 Budesonide [Pulmicort] 0.5 mg INH BIDRT 02/11/21 15:30 methylPREDNISolone Sod Succ [Solu-MEDROL] 125 mg IVPUSH Q12H 02/12/21 06:00 BASIC METABOLIC PANEL,BMP [CHEM] Routine CBC WITH AUTO DIFF [HEME] Routine 02/13/21 09:00 predniSONE 40 mg PO DAILY - Plan Plan:: 1. Pneumonitis/SOB/pulmonary edema: CT showed bilateral infiltrates: questioned fibrosis vs pulmonary edema with CHF, Echo showed preserved EF at 61%, official report pending. He is down 8 lbs from admission, BNP was 451. He has had history of freon and anhydrous exposure, could have fibrosis as well. Will repeat CXR today, add Budesonide bid, also add Flutter valve q1hwa. Seeing pulmonology next so will hold off high resolution CT & PFTs at this time. Desaturated to 80% with ambulation on room air, order placed for home oxygen. WBC 11.8, will continue Zosyn. Taper SoluMedrol to 125mg q12h x 2 doses then daily, will start Prednisone 40 mg daily on Sunday with tapering down. 2. Hyperglycemia, most likely secondary to steroids: Metformin 500 mg bid. Will need recheck of his HgbA1c once he is off steroids for a few months. 3. AKD: Cr 1.7 today, will repeat tomorrow. If continues to go up, will hold Lasix. 4. Discharge planning: anticipate discharge on Sunday.
[2021-02-11] MEDS: Enoxaparin 40 MG/0.4 ML Syringe SUBCUT SCH (14:22)
--- NOTE | 2021-02-11 16:22 | CR ---
CHEST TWO VIEWS [id number] INDICATION: Followup. PA and lateral views of the chest were obtained 02/11/2021 and compared with 02/08/2021 and 02/07/2021. Further decrease in severity of CHF is noted with minimal residual, if any, present at this time. There are continued infiltrates in both lower lung wu which may be very slightly diminished on the left but appears stable on the right. A new acute process was not suggested. Heart size is difficult to evaluate but appears somewhat prominent. Aorta is tortuous and calcified in the arch area. IMPRESSION: 1. Slightly improved appearance of the chest with no definite CHF at this time but with continued bilateral infiltrates in the lower lung wu. A portion of these changes may be on the basis of fibrosis, although residual pneumonia is felt to be more likely. 2. ASHD. MTDD
[2021-02-11] MEDS: Simvastatin 10 MG Tab PO SCH (20:53)
[2021-02-11] MEDS: Multivitamins with Iron/Calcium/Folic Acid/Minerals Tab PO SCH (20:54)
[2021-02-12] MEDS: methylPREDNISolone Sodium Succinate 125 MG/2 ML SDV IVPUSH SCH ×2 (03:24)
[2021-02-12] MEDS: Piperacillin/Tazobactam 2.25 GM in Sodium Chloride 0.9% 50 ML IV SCH ×3 (03:25→16:00)
[2021-02-12] MEDS: Budesonide 0.5 MG/2 ML Neb Susp INH SCH ×2 (06:21→21:11)
[2021-02-12] MEDS: Albuterol/Ipratropium 3.0-0.5 MG/3 ML Neb Soln NEB PRN ×4 (07:48→21:09)
[2021-02-12] MEDS: metFORMIN 500 MG Tab PO SCH ×2 (07:50→18:00)
[2021-02-12] MEDS: Furosemide 20 MG Tab PO SCH ×2 (07:51→13:53)
[2021-02-12] MEDS: Saccharomyces Boulardii (Probiotic) 250 MG Cap PO SCH ×2 (08:01→21:06)
[2021-02-12] MEDS: Potassium Chloride 20 MEQ Tab.ER PO SCH ×2 (08:01→21:06)
[2021-02-12] MEDS: Sodium Chloride 0.9% 10 ML Syringe FLUSH PRN ×3 (09:00→22:22)
[2021-02-12] MEDS ORDERED: Piperacillin/Tazobactam 2.25 GM in Sodium Chloride 0.9% 50 ML IV ONE (09:32)
[2021-02-12] MEDS: Enoxaparin 40 MG/0.4 ML Syringe SUBCUT SCH (13:54)
--- NOTE | 2021-02-12 14:11 | PCM.PN ---
- General Info Date of Service: 02/12/21 Subjective Update: Baltazar weight is up 3 lbs today, has more peripheral edema in lower extremities, admits to sitting a lot on the side of bed with feet down. Does not tolerate Teds hose. Encouraged ambulating. He states his breathing feels better, getting more productive cough with use of Flutter valve. Denies any chest pain, abdominal pain. Urinating well. States cramps in his fingers are gone since starting the potassium. He states the nebulized treatments are helping more than the inhalers he had at home, would like to continue at home, will arrange for neb machine for Sunday. Denies any fevers. Chest x-ray yesterday showed improvement. - Patient Data Vitals - Most Recent: Last Vital Signs Temp 97.5 F 02/12/21 07:43 Pulse 80 02/12/21 07:43 Resp 20 02/12/21 07:43 BP 128/77 02/12/21 07:43 Pulse Ox 93 L 02/12/21 07:44 Weight - Most Recent: 236 lb Lab Results Last 24 Hours: Laboratory Results - last 24 hr 02/12/21 02/12/21 Range/Units 06:15 06:15 WBC 12.2 H (3.2-10.1) x10-3/uL RBC 5.03 (3.90-5.90) x10(6)uL Hgb 15.0 (12.9-17.7) g/dL Hct 45.0 (38.3-50.1) % MCV 89.5 (80.8-98.7) fL MCH 29.9 (27.0-33.3) pg MCHC 33.4 (28.7-35.3) g/dL RDW 14.0 (12.4-15.0) % Plt Count 234 (117-477) x10(3)uL MPV 7.7 (6.7-11.0) fL Add Manual Diff Yes Neutrophils % (Manual) 91 H (46-82) % Lymphocytes % (Manual) 6 L (13-37) % Monocytes % (Manual) 3 L (4-12) % Sodium 137 (135-145) mmol/L Potassium 4.3 (3.5-5.3) mmol/L Chloride 98 L (100-110) mmol/L Carbon Dioxide 34 H (21-32) mmol/L BUN 39 H (7-18) mg/dL Creatinine 1.3 (0.70-1.30) mg/dL Est Cr Clr Drug Dosing 47.59 mL/min Estimated GFR (MDRD) 54 L (>60) BUN/Creatinine Ratio 30.0 H (9-20) Glucose 251 H (80-116) mg/dL Calcium 8.5 L (8.6-10.2) mg/dL Med Orders - Current: Current Medications Albuterol/Ipratropium (Albuterol/Ipratropium 3.0-0.5 Mg/3 Ml Neb Soln) 3 ml NEB QID PRN PRN Reason: DYSPNEA Last Admin: 02/12/21 11:12 Dose: 3 ml Documented by: Budesonide (Budesonide 0.5 Mg/2 Ml Neb Susp) 0.5 mg INH BIDRT [facility] Last Admin: 02/12/21 06:21 Dose: 0.5 mg Documented by: Enoxaparin Sodium (Enoxaparin 40 Mg/0.4 Ml Syringe) 40 mg SUBCUT Q24H [facility] Last Admin: 02/12/21 13:54 Dose: 40 mg Documented by: Furosemide (Furosemide 20 Mg Tab) 20 mg PO BIDDIURETIC [facility] Last Admin: 02/12/21 13:53 Dose: 20 mg Documented by: Piperacillin Sod/Tazobactam (Sod 4.5 gm/ Sodium Chloride) 50 mls @ 100 mls/hr IV Q6H [facility] Stop: 02/13/21 15:31 Metformin HCl (Metformin 500 Mg Tab) 500 mg PO BIDMEALS [facility] Last Admin: 02/12/21 07:50 Dose: 500 mg Documented by: Multivitamins/Minerals (Multivitamins With Iron/Calcium/Folic Acid/Minerals Tab) 1 tab PO BEDTIME [facility] Last Admin: 02/11/21 20:54 Dose: 1 tab Documented by: Ondansetron HCl (Ondansetron 4 Mg/2 Ml Sdv) 4 mg IV Q4H PRN PRN Reason: Nausea/Vomiting Potassium Chloride (Potassium Chloride 20 Meq Tab.Er) 20 meq PO BID [facility] Last Admin: 02/12/21 08:01 Dose: 20 meq Documented by: Prednisone (Prednisone 20 Mg Tab) 40 mg PO DAILY [facility] Saccharomyces Boulardii (Saccharomyces Boulardii (Probiotic) 250 Mg Cap) 250 mg PO BID [facility] Last Admin: 02/12/21 08:01 Dose: 250 mg Documented by: Senna/Docusate Sodium (Docusate Sodium/Sennosides 50-8.6 Mg Tab) 1 tab PO BID PRN PRN Reason: Constipation Simvastatin (Simvastatin 10 Mg Tab) 10 mg PO BEDTIME [facility] Last Admin: 02/11/21 20:53 Dose: 10 mg Documented by: Sodium Chloride (Sodium Chloride 0.9% 10 Ml Syringe) 10 ml FLUSH ASDIRECTED PRN PRN Reason: Keep Vein Open Last Admin: 02/12/21 09:00 Dose: 10 ml Documented by: Discontinued Medications Albuterol/Ipratropium (Albuterol/Ipratropium 3.0-0.5 Mg/3 Ml Neb Soln) 3 ml NEB NOW STA Stop: 02/07/21 11:15 Last Admin: 02/07/21 11:55 Dose: 3 ml Documented by: Albuterol/Ipratropium (Albuterol/Ipratropium 3.0-0.5 Mg/3 Ml Neb Soln) 3 ml NEB QID [facility] Last Admin: 02/07/21 15:19 Dose: Not Given Documented by: Atenolol (Atenolol 25 Mg Tab) 25 mg PO BEDTIME [facility] Last Admin: 02/09/21 21:20 Dose: 25 mg Documented by: Furosemide (Furosemide 40 Mg/4 Ml Vial) 40 mg IVPUSH NOW ONE Stop: 02/07/21 13:29 Last Admin: 02/07/21 13:36 Dose: 40 mg Documented by: Furosemide (Furosemide 40 Mg/4 Ml Vial) 40 mg IVPUSH BID [facility] Furosemide (Furosemide 40 Mg/4 Ml Vial) 40 mg IVPUSH BID@0900,1900 [facility] Last Admin: 02/07/21 20:04 Dose: 40 mg Documented by: Furosemide (Furosemide 20 Mg/2 Ml Vial) 20 mg IVPUSH DAILY [facility] Furosemide (Furosemide 20 Mg/2 Ml Vial) 20 mg IVPUSH BIDDIURETIC [facility] Last Admin: 02/09/21 08:54 Dose: 20 mg Documented by: Furosemide (Furosemide 20 Mg Tab) 20 mg PO BID [facility] Last Admin: 02/10/21 20:54 Dose: 20 mg Documented by: Piperacillin Sod/Tazobactam (Sod 3.375 gm/ Sodium Chloride) 50 mls @ 100 mls/hr IV Q6H [facility] Last Admin: 02/09/21 09:49 Dose: 100 mls/hr Documented by: Piperacillin Sod/Tazobactam (Sod 2.25 gm/ Sodium Chloride) 50 mls @ 100 mls/hr IV Q6H [facility] Stop: 02/13/21 10:30 Last Admin: 02/12/21 09:00 Dose: 100 mls/hr Documented by: Piperacillin Sod/Tazobactam (Sod 2.25 gm/ Sodium Chloride) 50 mls @ 100 mls/hr IV ONETIME ONE Stop: 02/12/21 10:01 Last Admin: 02/12/21 09:43 Dose: 100 mls/hr Documented by: Iopamidol (Iopamidol 755 Mg/Ml 100 Ml Bottle) 100 ml IV . DIRECTED ONE Stop: 02/07/21 12:15 Last Admin: 02/07/21 12:37 Dose: 100 ml Documented by: Methylprednisolone Sodium Succinate (Methylprednisolone Sodium Succinate 125 Mg/2 Ml Sdv) 125 mg IVPUSH NOW STA Stop: 02/07/21 11:15 Last Admin: 02/07/21 11:45 Dose: 125 mg Documented by: Methylprednisolone Sodium Succinate (Methylprednisolone Sodium Succinate 125 Mg/2 Ml Sdv) 125 mg IVPUSH Q8H [facility] Last Admin: 02/12/21 03:24 Dose: 125 mg Documented by: Methylprednisolone Sodium Succinate (Methylprednisolone Sodium Succinate 125 Mg/2 Ml Sdv) 125 mg IVPUSH Q12H [facility] Stop: 02/12/21 03:31 Last Admin: 02/12/21 03:24 Dose: 125 mg Documented by: Metolazone (Metolazone 5 Mg Tab) 5 mg PO ONETIME ONE Stop: 02/07/21 13:27 Last Admin: 02/07/21 13:36 Dose: 5 mg Documented by: Metolazone (Metolazone 2.5 Mg Tab) 2.5 mg PO DAILY@0800 [facility] Last Admin: 02/08/21 09:00 Dose: 2.5 mg Documented by: Perflutren Lipid Microsphere (Perflutren Lipid Microspheres 2.2 Mg/2 Ml Sdv) 2.2 mg IVPUSH PREPRO ONE Stop: 02/08/21 11:20 Last Admin: 02/08/21 11:39 Dose: 2.2 mg Documented by: - Exam Quality Assessment: Supplemental Oxygen General: Alert, Oriented, Cooperative, No Acute Distress Lungs: Clear to Auscultation (BUL), Normal Respiratory Effort, Crackles (R>L base). No: Wheezing Cardiovascular: Regular Rate, Regular Rhythm, No Murmurs GI/Abdominal Exam: Normal Bowel Sounds, Soft, Non-Tender, No Distention Extremities: Pedal Edema (1+ BLE) Peripheral Pulses: 2+: Radial (L), Radial (R) - Patient Data Lab Results Last 24 hrs: Laboratory Results - last 24 hr 02/12/21 02/12/21 Range/Units 06:15 06:15 WBC 12.2 H (3.2-10.1) x10-3/uL RBC 5.03 (3.90-5.90) x10(6)uL Hgb 15.0 (12.9-17.7) g/dL Hct 45.0 (38.3-50.1) % MCV 89.5 (80.8-98.7) fL MCH 29.9 (27.0-33.3) pg MCHC 33.4 (28.7-35.3) g/dL RDW 14.0 (12.4-15.0) % Plt Count 234 (117-477) x10(3)uL MPV 7.7 (6.7-11.0) fL Add Manual Diff Yes Neutrophils % (Manual) 91 H (46-82) % Lymphocytes % (Manual) 6 L (13-37) % Monocytes % (Manual) 3 L (4-12) % Sodium 137 (135-145) mmol/L Potassium 4.3 (3.5-5.3) mmol/L Chloride 98 L (100-110) mmol/L Carbon Dioxide 34 H (21-32) mmol/L BUN 39 H (7-18) mg/dL Creatinine 1.3 (0.70-1.30) mg/dL Est Cr Clr Drug Dosing 47.59 mL/min Estimated GFR (MDRD) 54 L (>60) BUN/Creatinine Ratio 30.0 H (9-20) Glucose 251 H (80-116) mg/dL Calcium 8.5 L (8.6-10.2) mg/dL Result Diagrams: 02/12/21 06:15 02/12/21 06:15 Sepsis Event Note - Evaluation Sepsis Screening Result: No Definite Risk - Focused Exam Vital Signs: Vital Signs Temp Temp Pulse Resp BP BP Pulse Ox 02/12/21 07:44 02/12/21 07:43 97.5 F 80 20 128/77 93 L 02/12/21 03:25 98.3 F 72 20 136/78 93 L Pulse Ox 02/12/21 07:44 93 L 02/12/21 07:43 02/12/21 03:25 - Problem List & Annotations (1) SOBOE (shortness of breath on exertion) SNOMED Code(s): 92274625 Code(s): R06.02 - SHORTNESS OF BREATH Status: Acute Current Visit: Yes (2) Pulmonary edema SNOMED Code(s): 57844016 Code(s): J81.1 - CHRONIC PULMONARY EDEMA Status: Acute Current Visit: Yes (3) Pneumonitis SNOMED Code(s): 857445150 Code(s): J18.9 - PNEUMONIA, UNSPECIFIED ORGANISM Status: Acute Current Visit: Yes (4) GEORGE (acute kidney injury) SNOMED Code(s): 50558374, 92748029 Code(s): N17.9 - ACUTE KIDNEY FAILURE, UNSPECIFIED Status: Resolved Current Visit: Yes (5) Hyperglycemia, drug-induced SNOMED Code(s): 314270415 Code(s): R73.9 - HYPERGLYCEMIA, UNSPECIFIED; T50.905A - ADVERSE EFFECT OF UNSP DRUG/MEDS/BIOL SUBST, INIT Status: Acute Current Visit: Yes An notation/Comment:: most likely due to steriods over the past 6 weeks. Hgb A1c was 7.1, has been on steroid since first part of December. Continue Metformin 500 mg bid, adjust as necessary (6) COPD (chronic obstructive pulmonary disease) SNOMED Code(s): 87441386 Code(s): J44.9 - CHRONIC OBSTRUCTIVE PULMONARY DISEASE, UNSPECIFIED Status: Acute Current Visit: Yes Qualifiers: COPD type: chronic bronchitis Annotation/Comment:: questionable, has had freon & anhydrous exposure, further evaluation by pulmonology next week. Will need high resolution CT and PFTs to confirm diagnosis. (7) Obesity SNOMED Code(s): 360317027, 248437467 Code(s): E66.9 - OBESITY, UNSPECIFIED Status: Chronic Current Visit: Yes Qualifiers: Obesity type: due to excess calories (8) HTN (hypertension) SNOMED Code(s): 33401165 Code(s): I10 - ESSENTIAL (PRIMARY) HYPERTENSION Status: Chronic Current Visit: Yes Qualifiers: Hypertension type: essential hypertension Qualified Code(s): I10 - Essential (primary) hypertension - Problem List Review Problem List Initiated/Reviewed/Updated: Yes - My Orders Last 24 Hours: My Active Orders 02/12/21 09:29 CULTURE SPUTUM + SMEAR [RM] Routine 02/12/21 15:30 Piperacillin/Tazobactam [Zosyn] 4.5 gm Sodium Chloride 0.9% [Normal Saline] 50 ml IV Q6H 02/13/21 06:00 BASIC METABOLIC PANEL,BMP [CHEM] Routine CBC WITH AUTO DIFF [HEME] Routine 02/13/21 09:00 predniSONE 40 mg PO DAILY - Plan Plan:: 1. Pneumonitis/SOB/pulmonary edema: BNP was 451 up from admission at 392. CXR improved from previous. WBC 12.2 neutraphils up to 91% today, Cr 1.3, GFR 75, increase dose of Zosyn to 4.5 gram IV q6h, will continue through Sunday, repeat CBC tomorrow. Last dose of SoluMedrol this morning, will start Prednisone 40 mg daily on Sunday with tapering down 10 mg every 3 days until off. 2. Hyperglycemia, most likely secondary to steroids: Metformin 500 mg bid. Will need recheck of his HgbA1c once he is off steroids for a few months. 3. AKD: Resolved Cr 1.3 today, will repeat tomorrow. 4. Discharge planning: anticipate discharge on Sunday since his WBC went up, also will need to get nebulizer machine and new medications arranged with [facility].
[2021-02-12] MEDS ORDERED: Sodium Chloride 0.9% 0 ML ONE (15:46)
[2021-02-12] MEDS: Piperacillin/Tazobactam 4.5 GM in Sodium Chloride 0.9% 50 ML IV SCH ×2 (16:00→21:33)
[2021-02-12] MEDS: Simvastatin 10 MG Tab PO SCH (21:06)
[2021-02-12] MEDS: Multivitamins with Iron/Calcium/Folic Acid/Minerals Tab PO SCH (21:06)
[2021-02-13] MEDS: Piperacillin/Tazobactam 4.5 GM in Sodium Chloride 0.9% 50 ML IV SCH ×4 (03:32→21:21)
[2021-02-13] MEDS: Sodium Chloride 0.9% 10 ML Syringe FLUSH PRN ×4 (03:32→21:24)
[2021-02-13] MEDS: Albuterol/Ipratropium 3.0-0.5 MG/3 ML Neb Soln NEB PRN ×3 (06:58→21:19)
[2021-02-13] MEDS: Budesonide 0.5 MG/2 ML Neb Susp INH SCH ×2 (06:58→21:22)
[2021-02-13] MEDS: metFORMIN 500 MG Tab PO SCH ×2 (07:48→17:15)
[2021-02-13] MEDS: Furosemide 20 MG Tab PO SCH (07:49)
[2021-02-13] MEDS: Saccharomyces Boulardii (Probiotic) 250 MG Cap PO SCH ×2 (08:38→21:23)
[2021-02-13] MEDS: predniSONE 20 MG Tab PO SCH (08:38)
--- NOTE | 2021-02-13 11:39 | PCM.PN ---
- General Info Date of Service: 02/13/21 Subjective Update: Baltazar feels his breathing is improved but his legs and feet are more swollen today. His weight is up 3 more pounds today, up 6 pounds since Sunday. He was changed to oral Lasix from IV on Sunday. No chest pain, nausea, vomiting. Had normal BM this morning. No fevers. Feels decondition since he has been having all shortness of breath issues the past 6 weeks, wondered about seeing PT/OT to get strength back and help with showering, other ADLs. - Patient Data Vitals - Most Recent: Last Vital Signs Temp 98.7 F 02/13/21 07:05 Pulse 72 02/13/21 07:20 Resp 20 02/13/21 07:05 BP 134/73 02/13/21 07:05 Pulse Ox 93 L 02/13/21 07:05 Weight - Most Recent: 239 lb 9 oz Lab Results Last 24 Hours: Laboratory Results - last 24 hr 02/13/21 02/13/21 Range/Units 06:15 06:15 WBC 12.8 H (3.2-10.1) x10-3/uL RBC 4.90 (3.90-5.90) x10(6)uL Hgb 14.8 (12.9-17.7) g/dL Hct 43.9 (38.3-50.1) % MCV 89.5 (80.8-98.7) fL MCH 30.2 (27.0-33.3) pg MCHC 33.8 (28.7-35.3) g/dL RDW 14.2 (12.4-15.0) % Plt Count 216 (117-477) x10(3)uL MPV 7.8 (6.7-11.0) fL Add Manual Diff Yes Neutrophils % (Manual) 71 (46-82) % Lymphocytes % (Manual) 27 (13-37) % Monocytes % (Manual) 2 L (4-12) % Sodium 139 (135-145) mmol/L Potassium 4.1 (3.5-5.3) mmol/L Chloride 101 (100-110) mmol/L Carbon Dioxide 34 H (21-32) mmol/L BUN 32 H (7-18) mg/dL Creatinine 1.3 (0.70-1.30) mg/dL Est Cr Clr Drug Dosing 47.59 mL/min Estimated GFR (MDRD) 54 L (>60) BUN/Creatinine Ratio 24.6 H (9-20) Glucose 191 H (80-116) mg/dL Calcium 8.7 (8.6-10.2) mg/dL Med Orders - Current: Current Medications Albuterol/Ipratropium (Albuterol/Ipratropium 3.0-0.5 Mg/3 Ml Neb Soln) 3 ml NEB QID PRN PRN Reason: DYSPNEA Last Admin: 02/13/21 06:58 Dose: 3 ml Documented by: Budesonide (Budesonide 0.5 Mg/2 Ml Neb Susp) 0.5 mg INH BIDRT [facility] Last Admin: 02/13/21 06:58 Dose: 0.5 mg Documented by: Enoxaparin Sodium (Enoxaparin 40 Mg/0.4 Ml Syringe) 40 mg SUBCUT Q24H [facility] Last Admin: 02/12/21 13:54 Dose: 40 mg Documented by: Piperacillin Sod/Tazobactam (Sod 4.5 gm/ Sodium Chloride) 50 mls @ 100 mls/hr IV Q6H [facility] Stop: 02/14/21 15:31 Last Admin: 02/13/21 08:58 Dose: 100 mls/hr Documented by: Metformin HCl (Metformin 500 Mg Tab) 500 mg PO BIDMEALS [facility] Last Admin: 02/13/21 07:48 Dose: 500 mg Documented by: Multivitamins/Minerals (Multivitamins With Iron/Calcium/Folic Acid/Minerals Tab) 1 tab PO BEDTIME [facility] Last Admin: 02/12/21 21:06 Dose: 1 tab Documented by: Ondansetron HCl (Ondansetron 4 Mg/2 Ml Sdv) 4 mg IV Q4H PRN PRN Reason: Nausea/Vomiting Potassium Chloride (Potassium Chloride 20 Meq Tab.Er) 20 meq PO BID [facility] Last Admin: 02/12/21 21:06 Dose: 20 meq Documented by: Prednisone (Prednisone 20 Mg Tab) 40 mg PO DAILY [facility] Last Admin: 02/13/21 08:38 Dose: 40 mg Documented by: Saccharomyces Boulardii (Saccharomyces Boulardii (Probiotic) 250 Mg Cap) 250 mg PO BID [facility] Last Admin: 02/13/21 08:38 Dose: 250 mg Documented by: Senna/Docusate Sodium (Docusate Sodium/Sennosides 50-8.6 Mg Tab) 1 tab PO BID PRN PRN Reason: Constipation Simvastatin (Simvastatin 10 Mg Tab) 10 mg PO BEDTIME [facility] Last Admin: 02/12/21 21:06 Dose: 10 mg Documented by: Sodium Chloride (Sodium Chloride 0.9% 10 Ml Syringe) 10 ml FLUSH ASDIRECTED PRN PRN Reason: Keep Vein Open Last Admin: 02/13/21 09:33 Dose: 10 ml Documented by: Torsemide (Torsemide 20 Mg Tab) 10 mg PO BIDDIURETIC [facility] Discontinued Medications Albuterol/Ipratropium (Albuterol/Ipratropium 3.0-0.5 Mg/3 Ml Neb Soln) 3 ml NEB NOW STA Stop: 02/07/21 11:15 Last Admin: 02/07/21 11:55 Dose: 3 ml Documented by: Albuterol/Ipratropium (Albuterol/Ipratropium 3.0-0.5 Mg/3 Ml Neb Soln) 3 ml NEB QID [facility] Last Admin: 02/07/21 15:19 Dose: Not Given Documented by: Atenolol (Atenolol 25 Mg Tab) 25 mg PO BEDTIME [facility] Last Admin: 02/09/21 21:20 Dose: 25 mg Documented by: Furosemide (Furosemide 40 Mg/4 Ml Vial) 40 mg IVPUSH NOW ONE Stop: 02/07/21 13:29 Last Admin: 02/07/21 13:36 Dose: 40 mg Documented by: Furosemide (Furosemide 40 Mg/4 Ml Vial) 40 mg IVPUSH BID [facility] Furosemide (Furosemide 40 Mg/4 Ml Vial) 40 mg IVPUSH BID@0900,1900 [facility] Last Admin: 02/07/21 20:04 Dose: 40 mg Documented by: Furosemide (Furosemide 20 Mg/2 Ml Vial) 20 mg IVPUSH DAILY [facility] Furosemide (Furosemide 20 Mg/2 Ml Vial) 20 mg IVPUSH BIDDIURETIC [facility] Last Admin: 02/09/21 08:54 Dose: 20 mg Documented by: Furosemide (Furosemide 20 Mg Tab) 20 mg PO BID [facility] Last Admin: 02/10/21 20:54 Dose: 20 mg Documented by: Furosemide (Furosemide 20 Mg Tab) 20 mg PO BIDDIURETIC [facility] Last Admin: 02/13/21 07:49 Dose: 20 mg Documented by: Piperacillin Sod/Tazobactam (Sod 3.375 gm/ Sodium Chloride) 50 mls @ 100 mls/hr IV Q6H [facility] Last Admin: 02/09/21 09:49 Dose: 100 mls/hr Documented by: Piperacillin Sod/Tazobactam (Sod 2.25 gm/ Sodium Chloride) 50 mls @ 100 mls/hr IV Q6H [facility] Stop: 02/13/21 10:30 Last Admin: 02/12/21 09:00 Dose: 100 mls/hr Documented by: Piperacillin Sod/Tazobactam (Sod 4.5 gm/ Sodium Chloride) 50 mls @ 100 mls/hr IV Q6H [facility] Stop: 02/14/21 15:31 Last Admin: 02/12/21 21:33 Dose: 100 mls/hr Documented by: Piperacillin Sod/Tazobactam (Sod 2.25 gm/ Sodium Chloride) 50 mls @ 100 mls/hr IV ONETIME ONE Stop: 02/12/21 10:01 Last Admin: 02/12/21 09:43 Dose: 100 mls/hr Documented by: Sodium Chloride (Normal Saline) Confirm Administered Dose 0 mls @ as directed .ROUTE .STK-MED ONE Stop: 02/12/21 15:47 Last Admin: 02/12/21 19:26 Dose: Not Given Documented by: Iopamidol (Iopamidol 755 Mg/Ml 100 Ml Bottle) 100 ml IV . DIRECTED ONE Stop: 02/07/21 12:15 Last Admin: 02/07/21 12:37 Dose: 100 ml Documented by: Methylprednisolone Sodium Succinate (Methylprednisolone Sodium Succinate 125 Mg/2 Ml Sdv) 125 mg IVPUSH NOW STA Stop: 02/07/21 11:15 Last Admin: 02/07/21 11:45 Dose: 125 mg Documented by: Methylprednisolone Sodium Succinate (Methylprednisolone Sodium Succinate 125 Mg/2 Ml Sdv) 125 mg IVPUSH Q8H [facility] Last Admin: 02/12/21 03:24 Dose: 125 mg Documented by: Methylprednisolone Sodium Succinate (Methylprednisolone Sodium Succinate 125 Mg/2 Ml Sdv) 125 mg IVPUSH Q12H [facility] Stop: 02/12/21 03:31 Last Admin: 02/12/21 03:24 Dose: 125 mg Documented by: Metolazone (Metolazone 5 Mg Tab) 5 mg PO ONETIME ONE Stop: 02/07/21 13:27 Last Admin: 02/07/21 13:36 Dose: 5 mg Documented by: Metolazone (Metolazone 2.5 Mg Tab) 2.5 mg PO DAILY@0800 [facility] Last Admin: 02/08/21 09:00 Dose: 2.5 mg Documented by: Perflutren Lipid Microsphere (Perflutren Lipid Microspheres 2.2 Mg/2 Ml Sdv) 2.2 mg IVPUSH PREPRO ONE Stop: 02/08/21 11:20 Last Admin: 02/08/21 11:39 Dose: 2.2 mg Documented by: - Exam Quality Assessment: Supplemental Oxygen General: Alert, Oriented, Cooperative, No Acute Distress Lungs: Clear to Auscultation (BUL), Normal Respiratory Effort, Crackles (R>L, increased today, improved air entry) Cardiovascular: Regular Rate, Regular Rhythm GI/Abdominal Exam: Normal Bowel Sounds, Soft, Non-Tender, No Distention Extremities: Pedal Edema (2+ pitting BLE & feet) Peripheral Pulses: 2+: Radial (L), Radial (R) - Patient Data Lab Results Last 24 hrs: Laboratory Results - last 24 hr 02/13/21 02/13/21 Range/Units 06:15 06:15 WBC 12.8 H (3.2-10.1) x10-3/uL RBC 4.90 (3.90-5.90) x10(6)uL Hgb 14.8 (12.9-17.7) g/dL Hct 43.9 (38.3-50.1) % MCV 89.5 (80.8-98.7) fL MCH 30.2 (27.0-33.3) pg MCHC 33.8 (28.7-35.3) g/dL RDW 14.2 (12.4-15.0) % Plt Count 216 (117-477) x10(3)uL MPV 7.8 (6.7-11.0) fL Add Manual Diff Yes Neutrophils % (Manual) 71 (46-82) % Lymphocytes % (Manual) 27 (13-37) % Monocytes % (Manual) 2 L (4-12) % Sodium 139 (135-145) mmol/L Potassium 4.1 (3.5-5.3) mmol/L Chloride 101 (100-110) mmol/L Carbon Dioxide 34 H (21-32) mmol/L BUN 32 H (7-18) mg/dL Creatinine 1.3 (0.70-1.30) mg/dL Est Cr Clr Drug Dosing 47.59 mL/min Estimated GFR (MDRD) 54 L (>60) BUN/Creatinine Ratio 24.6 H (9-20) Glucose 191 H (80-116) mg/dL Calcium 8.7 (8.6-10.2) mg/dL Result Diagrams: 02/13/21 06:15 02/13/21 06:15 Sepsis Event Note - Evaluation Sepsis Screening Result: No Definite Risk - Focused Exam Vital Signs: Vital Signs Temp Pulse Resp BP Pulse Ox Pulse Ox 02/13/21 07:20 72 02/13/21 07:05 98.7 F 74 20 134/73 93 L 02/13/21 00:15 93 L 02/13/21 00:00 98.1 F 88 20 135/78 93 L - Problem List & Annotations (1) SOBOE (shortness of breath on exertion) SNOMED Code(s): 78074882 Code(s): R06.02 - SHORTNESS OF BREATH Status: Acute Current Visit: Yes (2) Pulmonary edema SNOMED Code(s): 49946158 Code(s): J81.1 - CHRONIC PULMONARY EDEMA Status: Acute Current Visit: Yes (3) Pneumonitis SNOMED Code(s): 386522015 Code(s): J18.9 - PNEUMONIA, UNSPECIFIED ORGANISM Status: Acute Current Visit: Yes (4) Weakness SNOMED Code(s): 74719246 Code(s): R53.1 - WEAKNESS Status: Acute Current Visit: Yes (5) Hyperglycemia, drug-induced SNOMED Code(s): 206484021 Code(s): R73.9 - HYPERGLYCEMIA, UNSPECIFIED; T50.905A - ADVERSE EFFECT OF UNSP DRUG/MEDS/BIOL SUBST, INIT Status: Acute Current Visit: Yes Annotation/Comment:: most likely due to steriods over the past 6 weeks. Hgb A1c was 7.1, has been on steroid since first part of December. Continue Metformin 500 mg bid, adjust as necessary (6) COPD (chronic obstructive pulmonary disease) SNOMED Code(s): 86482151 Code(s): J44.9 - CHRONIC OBSTRUCTIVE PULMONARY DISEASE, UNSPECIFIED Status: Acute Current Visit: Yes Qualifiers: COPD type: chronic bronchitis Annotation/Comment:: questionable, has had freon & anhydrous exposure, further evaluation by pulmonology next week. Will need high resolution CT and PFTs to confirm diagnosis. (7) Physical deconditioning SNOMED Code(s): 71018430469593 Code(s): R53.81 - OTHER MALAISE Status: Acute Current Visit: Yes (8) HTN (hypertension) SNOMED Code(s): 07974118 Code(s): I10 - ESSENTIAL (PRIMARY) HYPERTENSION Status: Chronic Current Visit: Yes Qualifiers: Hypertension type: essential hypertension Qualified Code(s): I10 - Essential (primary) hypertension (9) Obesity SNOMED Code(s): 669600800, 768399071 Code(s): E66.9 - OBESITY, UNSPECIFIED Status: Chronic Current Visit: Yes Qualifiers: Obesity type: due to excess calories (10) GEORGE (acute kidney injury) SNOMED Code(s): 79570862, 81167195 Code(s): N17.9 - ACUTE KIDNEY FAILURE, UNSPECIFIED Status: Resolved Current Visit: Yes - Problem List Review Problem List Initiated/Reviewed/Updated: Yes - My Orders Last 24 Hours: My Active Orders 02/13/21 03:30 Piperacillin/Tazobactam [Zosyn] 4.5 gm Sodium Chloride 0.9% [Normal Saline] 50 ml IV Q6H 02/13/21 09:00 predniSONE 40 mg PO DAILY 02/13/21 14:00 Torsemide [Demadex] 10 mg PO BIDDIURETIC 02/14/21 06:00 OT Evaluation and Treatment [CONS] Routine PT Evaluation and Treatment [CONS] Routine BASIC METABOLIC PANEL,BMP [CHEM] Routine CBC WITH AUTO DIFF [HEME] Routine - Plan Plan:: 1. Pneumonitis/SOB/pulmonary edema: BNP was 451 up from admission at 392. CXR improved from previous. WBC 12.8 neutraphils down to 71% today, Cr 1.3, GFR 75, Zosyn increased to 4.5 gram IV q6h yesterday, will continue through Sunday, repeat CBC tomorrow. Prednisone 40 mg daily daily with tapering down 10 mg every 3 days until off. Weight has increased since switching from IV Lasix to PO, will switch to Torsemide 10 mg biddiuretic and see how he responds to this. Continue Flutter valve(Acapella) & Incentive Spirometry. Budesonide neb bid & DuoNeb qid. Seeing Reji Arreola PA-C [facility] on 02/17. 2. Hyperglycemia, most likely secondary to steroids: Metformin 500 mg bid. Will need recheck of his HgbA1c once he is off steroids for a few months. 3. Deconditioning/weakness: PT/OT evaluate & treat for Sunday, if needed as ou [facility]patient [facility]. 4. Discharge planning: anticipate discharge on Sunday, also will need to get nebulizer machine and new medications arranged with [facility].
[2021-02-13] MEDS: Potassium Chloride 20 MEQ Tab.ER PO SCH ×2 (11:41→21:22)
[2021-02-13] MEDS: Torsemide 20 MG Tab PO SCH (13:59)
[2021-02-13] MEDS: Enoxaparin 40 MG/0.4 ML Syringe SUBCUT SCH (13:59)
[2021-02-13] MEDS ORDERED: Enoxaparin 100 MG/1 ML Syringe SUBCUT ONE (20:57)
--- NOTE | 2021-02-13 21:03 | PCM.SN.2 ---
- Free Text/Narrative Note: c/o irregular HR pt on diuretic changed for furosemide to torsemide, c/o mild lightheaded, BP stable, however RN Eva noted irregular HR that was new h/o HF and COPD h/o cardiac stents in distant past, pt denies AR/afib/arrhythmia in the past PE: pt sitting in chair, alert, joking, CV irreg irreg, no resp distress EKG: afib, RBBB, LVH with repolarization ASSESS: new onset afib, possibly related to diuresis, has known HF PLAN: pt received Lovenox 40u SC at 14:30 as routine prophylaxis, will given an additional 1 unit/kg now (100 units) with additional management in AM, rate is in the 80s and is controlled without additional meds BUN/creat has improved 48/1.6 to 32/1.3, no recent trop, will check trop tonight, BNP 451 from 2d ago
[2021-02-13] MEDS: Simvastatin 10 MG Tab PO SCH (21:22)
[2021-02-13] MEDS: Multivitamins with Iron/Calcium/Folic Acid/Minerals Tab PO SCH (21:22)
[2021-02-14] MEDS: Piperacillin/Tazobactam 4.5 GM in Sodium Chloride 0.9% 50 ML IV SCH ×2 (03:23→11:59)
[2021-02-14] MEDS: Sodium Chloride 0.9% 10 ML Syringe FLUSH PRN ×3 (03:30→19:01)
[2021-02-14] MEDS: Budesonide 0.5 MG/2 ML Neb Susp INH SCH ×2 (06:00→20:45)
[2021-02-14] MEDS: Albuterol/Ipratropium 3.0-0.5 MG/3 ML Neb Soln NEB PRN ×3 (06:00→20:55)
[2021-02-14] MEDS: metFORMIN 500 MG Tab PO SCH (07:49)
[2021-02-14] MEDS ORDERED: Torsemide 20 MG Tab PO SCH (09:00)
[2021-02-14] MEDS: predniSONE 20 MG Tab PO SCH (09:20)
[2021-02-14] MEDS: Potassium Chloride 20 MEQ Tab.ER PO SCH ×2 (09:21→20:45)
[2021-02-14] MEDS: Saccharomyces Boulardii (Probiotic) 250 MG Cap PO SCH ×2 (09:21→20:44)
[2021-02-14] MEDS: Torsemide 20 MG Tab PO SCH (11:27)
--- NOTE | 2021-02-14 11:48 | CR ---
INDICATION: Followup elevated white blood count. CHEST TWO VIEWS: PA and lateral views of the chest were obtained 02/14/21 and compared with 02/11/21 and 02/08/21 and still reveal areas of patchy infiltrate bilaterally although on the left the appearance is slightly improved. No other change or new acute process was identified. MTDD
--- NOTE | 2021-02-14 13:15 | PCM.PN ---
- General Info Date of Service: 02/14/21 Subjective Update: Baltazar went into atrial fibrillation last night and was hypotensive, Troponin was negative, Chest x-ray looks unchanged from 02/11. Echo showed EF of 61%, Baltazar an d his noted the edema in his legs since he started Prednisone 12/20/20. He has not had edema with his Naproxen. He states his shortness of breath has been since Sep. Has not had any fevers this entire time. Was on 2 courses of Dexamethasone & Levofloxacin in December and then started on Ventolin with Prednisone 5 mg daily on February 03, 4 days prior to his admission. He is feeling better now after walking with OT this morning. Had some chest tightness but not present now. BM have been normal. Had some lightheadedness yesterday early evening. - Patient Data Vitals - Most Recent: Last Vital Signs Temp 98.1 F 02/14/21 09:00 Pulse 108 H 02/14/21 10:00 Resp 20 02/14/21 09:00 BP 99/68 02/14/21 09:00 Pulse Ox 93 L 02/14/21 09:00 Weight - Most Recent: 240 lb 3 oz Lab Results Last 24 Hours: Laboratory Results - last 24 hr 02/13/21 02/13/21 02/14/21 Range/Units 17:10 21:04 06:35 WBC 15.0 H (3.2-10.1) x10-3/uL RBC 5.45 (3.90-5.90) x10(6)uL Hgb 16.2 (12.9-17.7) g/dL Hct 48.9 (38.3-50.1) % MCV 89.8 (80.8-98.7) fL MCH 29.8 (27.0-33.3) pg MCHC 33.2 (28.7-35.3) g/dL RDW 14.3 (12.4-15.0) % Plt Count 243 (117-477) x10(3)uL MPV 8.2 (6.7-11.0) fL Add Manual Diff Yes Neutrophils % (Manual) 77 (46-82) % Lymphocytes % (Manual) 20 (13-37) % Monocytes % (Manual) 3 L (4-12) % Sodium (135-145) mmol/L Potassium (3.5-5.3) mmol/L Chloride (100-110) mmol/L Carbon Dioxide (21-32) mmol/L BUN (7-18) mg/dL Creatinine (0.70-1.30) mg/dL Est Cr Clr Drug Dosing mL/min Estimated GFR (MDRD) (>60) BUN/Creatinine Ratio (9-20) Glucose (80-116) mg/dL POC Glucose 332 H (80-116) mg/dL Lactic Acid (0.4-2.0) mmol/L Calcium (8.6-10.2) mg/dL Troponin I 56.3 (4.0-60.3) pg/mL 02/14/21 02/14/21 Range/Units 06:35 11:55 WBC (3.2-10.1) x10-3/uL RBC (3.90-5.90) x10(6)uL Hgb (12.9-17.7) g/dL Hct (38.3-50.1) % MCV (80.8-98.7) fL MCH (27.0-33.3) pg MCHC (28.7-35.3) g/dL RDW (12.4-15.0) % Plt Count (117-477) x10(3)uL MPV (6.7-11.0) fL Add Manual Diff Neutrophils % (Manual) (46-82) % Lymphocytes % (Manual) (13-37) % Monocytes % (Manual) (4-12) % Sodium 143 (135-145) mmol/L Potassium 4.2 (3.5-5.3) mmol/L Chloride 103 (100-110) mmol/L Carbon Dioxide 32 (21-32) mmol/L BUN 30 H (7-18) mg/dL Creatinine 1.4 H (0.70-1.30) mg/dL Est Cr Clr Drug Dosing 44.19 mL/min Estimated GFR (MDRD) 49 L (>60) BUN/Creatinine Ratio 21.4 H (9-20) Glucose 186 H (80-116) mg/dL POC Glucose (80-116) mg/dL Lactic Acid 2.8 H* (0.4-2.0) mmol/L Calcium 8.6 (8.6-10.2) mg/dL Troponin I (4.0-60.3) pg/mL Med Orders - Current: Current Medications Albuterol/Ipratropium (Albuterol/Ipratropium 3.0-0.5 Mg/3 Ml Neb Soln) 3 ml NEB QID PRN PRN Reason: DYSPNEA Last Admin: 02/14/21 06:00 Dose: 3 ml Documented by: Budesonide (Budesonide 0.5 Mg/2 Ml Neb Susp) 0.5 mg INH BIDRT [facility] Last Admin: 02/14/21 06:00 Dose: 0.5 mg Documented by: Enoxaparin Sodium (Enoxaparin 40 Mg/0.4 Ml Syringe) 40 mg SUBCUT Q24H [facility] Last Admin: 02/13/21 13:59 Dose: 40 mg Documented by: Piperacillin Sod/Tazobactam (Sod 4.5 gm/ Sodium Chloride) 50 mls @ 100 mls/hr IV Q6H [facility] Stop: 02/14/21 15:00 Last Admin: 02/14/21 11:59 Dose: 100 mls/hr Documented by: Piperacillin Sod/Tazobactam (Sod 4.5 gm/ Sodium Chloride) 50 mls @ 100 mls/hr IV ONETIME ONE Stop: 02/14/21 17:59 Metformin HCl (Metformin 500 Mg Tab) 500 mg PO BIDMEALS [facility] Last Admin: 02/14/21 07:49 Dose: 500 mg Documented by: Metoprolol Succinate (Metoprolol Succinate 25 Mg Tab.Er) 12.5 mg PO BEDTIME [facility] Multivitamins/Minerals (Multivitamins With Iron/Calcium/Folic Acid/Minerals Tab) 1 tab PO BEDTIME [facility] Last Admin: 02/13/21 21:22 Dose: 1 tab Documented by: Ondansetron HCl (Ondansetron 4 Mg/2 Ml Sdv) 4 mg IV Q4H PRN PRN Reason: Nausea/Vomiting Potassium Chloride (Potassium Chloride 20 Meq Tab.Er) 20 meq PO BID [facility] Last Admin: 02/14/21 09:21 Dose: 20 meq Documented by: Prednisone (Prednisone 20 Mg Tab) 40 mg PO DAILY [facility] Last Admin: 02/14/21 09:20 Dose: 40 mg Documented by: Saccharomyces Boulardii (Saccharomyces Boulardii (Probiotic) 250 Mg Cap) 250 mg PO BID [facility] Last Admin: 02/14/21 09:21 Dose: 250 mg Documented by: Senna/Docusate Sodium (Docusate Sodium/Sennosides 50-8.6 Mg Tab) 1 tab PO BID PRN PRN Reason: Constipation Simvastatin (Simvastatin 10 Mg Tab) 10 mg PO BEDTIME [facility] Last Admin: 02/13/21 21:22 Dose: 10 mg Documented by: Sodium Chloride (Sodium Chloride 0.9% 10 Ml Syringe) 10 ml FLUSH ASDIRECTED PRN PRN Reason: Keep Vein Open Last Admin: 02/14/21 04:30 Dose: 10 ml Documented by: Discontinued Medications Albuterol/Ipratropium (Albuterol/Ipratropium 3.0-0.5 Mg/3 Ml Neb Soln) 3 ml NEB NOW STA Stop: 02/07/21 11:15 Last Admin: 02/07/21 11:55 Dose: 3 ml Documented by: Albuterol/Ipratropium (Albuterol/Ipratropium 3.0-0.5 Mg/3 Ml Neb Soln) 3 ml NEB QID [facility] Last Admin: 02/07/21 15:19 Dose: Not Given Documented by: Atenolol (Atenolol 25 Mg Tab) 25 mg PO BEDTIME [facility] Last Admin: 02/09/21 21:20 Dose: 25 mg Documented by: Enoxaparin Sodium (Enoxaparin 100 Mg/1 Ml Syringe) 100 mg SUBCUT ONETIME ONE Stop: 02/13/21 20:58 Last Admin: 02/13/21 22:32 Dose: 100 mg Documented by: Furosemide (Furosemide 40 Mg/4 Ml Vial) 40 mg IVPUSH NOW ONE Stop: 02/07/21 13:29 Last Admin: 02/07/21 13:36 Dose: 40 mg Documented by: Furosemide (Furosemide 40 Mg/4 Ml Vial) 40 mg IVPUSH BID [facility] Furosemide (Furosemide 40 Mg/4 Ml Vial) 40 mg IVPUSH BID@0900,1900 [facility] Last Admin: 02/07/21 20:04 Dose: 40 mg Documented by: Furosemide (Furosemide 20 Mg/2 Ml Vial) 20 mg IVPUSH DAILY [facility] Furosemide (Furosemide 20 Mg/2 Ml Vial) 20 mg IVPUSH BIDDIURETIC [facility] Last Admin: 02/09/21 08:54 Dose: 20 mg Documented by: Furosemide (Furosemide 20 Mg Tab) 20 mg PO BID [facility] Last Admin: 02/10/21 20:54 Dose: 20 mg Documented by: Furosemide (Furosemide 20 Mg Tab) 20 mg PO BIDDIURETIC [facility] Last Admin: 02/13/21 07:49 Dose: 20 mg Documented by: Piperacillin Sod/Tazobactam (Sod 3.375 gm/ Sodium Chloride) 50 mls @ 100 mls/hr IV Q6H [facility] Last Admin: 02/09/21 09:49 Dose: 100 mls/hr Documented by: Piperacillin Sod/Tazobactam (Sod 2.25 gm/ Sodium Chloride) 50 mls @ 100 mls/hr IV Q6H [facility] Stop: 02/13/21 10:30 Last Admin: 02/12/21 09:00 Dose: 100 mls/hr Documented by: Piperacillin Sod/Tazobactam (Sod 4.5 gm/ Sodium Chloride) 50 mls @ 100 mls/hr IV Q6H [facility] Stop: 02/14/21 15:31 Last Admin: 02/12/21 21:33 Dose: 100 mls/hr Documented by: Piperacillin Sod/Tazobactam (Sod 2.25 gm/ Sodium Chloride) 50 mls @ 100 mls/hr IV ONETIME ONE Stop: 02/12/21 10:01 Last Admin: 02/12/21 09:43 Dose: 100 mls/hr Documented by: Sodium Chloride (Normal Saline) Confirm Administered Dose 0 mls @ as directed .ROUTE .STK-MED ONE Stop: 02/12/21 15:47 Last Admin: 02/12/21 19:26 Dose: Not Given Documented by: Iopamidol (Iopamidol 755 Mg/Ml 100 Ml Bottle) 100 ml IV . DIRECTED ONE Stop: 02/07/21 12:15 Last Admin: 02/07/21 12:37 Dose: 100 ml Documented by: Methylprednisolone Sodium Succinate (Methylprednisolone Sodium Succinate 125 Mg/2 Ml Sdv) 125 mg IVPUSH NOW STA Stop: 02/07/21 11:15 Last Admin: 02/07/21 11:45 Dose: 125 mg Documented by: Methylprednisolone Sodium Succinate (Methylprednisolone Sodium Succinate 125 Mg/2 Ml Sdv) 125 mg IVPUSH Q8H [facility] Last Admin: 02/12/21 03:24 Dose: 125 mg Documented by: Methylprednisolone Sodium Succinate (Methylprednisolone Sodium Succinate 125 Mg/2 Ml Sdv) 125 mg IVPUSH Q12H [facility] Stop: 02/12/21 03:31 Last Admin: 02/12/21 03:24 Dose: 125 mg Documented by: Metolazone (Metolazone 5 Mg Tab) 5 mg PO ONETIME ONE Stop: 02/07/21 13:27 Last Admin: 02/07/21 13:36 Dose: 5 mg Documented by: Metolazone (Metolazone 2.5 Mg Tab) 2.5 mg PO DAILY@0800 [facility] Last Admin: 02/08/21 09:00 Dose: 2.5 mg Documented by: Perflutren Lipid Microsphere (Perflutren Lipid Microspheres 2.2 Mg/2 Ml Sdv) 2.2 mg IVPUSH PREPRO ONE Stop: 02/08/21 11:20 Last Admin: 02/08/21 11:39 Dose: 2.2 mg Documented by: Torsemide (Torsemide 20 Mg Tab) 10 mg PO BIDDIURETIC [facility] Last Admin: 02/14/21 11:27 Dose: Not Given Documented by: Torsemide (Torsemide 20 Mg Tab) 10 mg PO DAILY [facility] Last Admin: 02/14/21 09:16 Dose: 10 mg Documented by: Torsemide (Torsemide 20 Mg Tab) 5 mg PO DAILY [facility] - Exam Quality Assessment: Supplemental Oxygen General: Alert, Oriented, Cooperative, No Acute Distress Lungs: Clear to Auscultation, Normal Respiratory Effort, Crackles (R>L base, fine). No: Wheezing Cardiovascular: Regular Rate, Irregular Rhythm GI/Abdominal Exam: Normal Bowel Sounds, Soft, Non-Tender, No Distention Extremities: Pedal Edema (1+ pitting edema) - Patient Data Lab Results Last 24 hrs: Laboratory Results - last 24 hr 02/13/21 02/13/21 02/14/21 Range/Units 17:10 21:04 06:35 WBC 15.0 H (3.2-10.1) x10-3/uL RBC 5.45 (3.90-5.90) x10(6)uL Hgb 16.2 (12.9-17.7) g/dL Hct 48.9 (38.3-50.1) % MCV 89.8 (80.8-98.7) fL MCH 29.8 (27.0-33.3) pg MCHC 33.2 (28.7-35.3) g/dL RDW 14.3 (12.4-15.0) % Plt Count 243 (117-477) x10(3)uL MPV 8.2 (6.7-11.0) fL Add Manual Diff Yes Neutrophils % (Manual) 77 (46-82) % Lymphocytes % (Manual) 20 (13-37) % Monocytes % (Manual) 3 L (4-12) % Sodium (135-145) mmol/L Potassium (3.5-5.3) mmol/L Chloride (100-110) mmol/L Carbon Dioxide (21-32) mmol/L BUN (7-18) mg/dL Creatinine (0.70-1.30) mg/dL Est Cr Clr Drug Dosing mL/min Estimated GFR (MDRD) (>60) BUN/Creatinine Ratio (9-20) Glucose (80-116) mg/dL POC Glucose 332 H (80-116) mg/dL Lactic Acid (0.4-2.0) mmol/L Calcium (8.6-10.2) mg/dL Troponin I 56.3 (4.0-60.3) pg/mL 02/14/21 02/14/21 Range/Units 06:35 11:55 WBC (3.2-10.1) x10-3/uL RBC (3.90-5.90) x10(6)uL Hgb (12.9-17.7) g/dL Hct (38.3-50.1) % MCV (80.8-98.7) fL MCH (27.0-33.3) pg MCHC (28.7-35.3) g/dL RDW (12.4-15.0) % Plt Count (117-477) x10(3)uL MPV (6.7-11.0) fL Add Manual Diff Neutrophils % (Manual) (46-82) % Lymphocytes % (Manual) (13-37) % Monocytes % (Manual) (4-12) % Sodium 143 (135-145) mmol/L Potassium 4.2 (3.5-5.3) mmol/L Chloride 103 (100-110) mmol/L Carbon Dioxide 32 (21-32) mmol/L BUN 30 H (7-18) mg/dL Creatinine 1.4 H (0.70-1.30) mg/dL Est Cr Clr Drug Dosing 44.19 mL/min Estimated GFR (MDRD) 49 L (>60) BUN/Creatinine Ratio 21.4 H (9-20) Glucose 186 H (80-116) mg/dL POC Glucose (80-116) mg/dL Lactic Acid 2.8 H* (0.4-2.0) mmol/L Calcium 8.6 (8.6-10.2) mg/dL Troponin I (4.0-60.3) pg/mL Result Diagrams: 02/14/21 06:35 02/14/21 06:35 Sepsis Event Note - Evaluation Sepsis Screening Result: No Definite Risk - Focused Exam Vital Signs: Vital Signs Temp Pulse Resp BP BP Pulse Ox 02/14/21 10:00 108 H 02/14/21 09:00 98.1 F 101 H 20 99/68 93 L 02/14/21 08:00 90 02/14/21 06:30 102 H 02/14/21 06:00 97.4 F 96 20 116/60 94 L 02/14/21 03:00 97.7 F 78 20 104/68 93 L - Problem List & Annotations (1) SOBOE (shortness of breath on exertion) SNOMED Code(s): 64406242 Code(s): R06.02 - SHORTNESS OF BREATH Status: Acute Current Visit: Yes (2) Pulmonary edema SNOMED Code(s): 88722673 Code(s): J81.1 - CHRONIC PULMONARY EDEMA Status: Ruled-out Current Visit: Yes (3) Pneumonitis SNOMED Code(s): 612442088 Code(s): J18.9 - PNEUMONIA, UNSPECIFIED ORGANISM Status: Acute Current Visit: Yes Annotation/Comment:: vs fibrosis (4) Weakness SNOMED Code(s): 74501884 Code(s): R53.1 - WEAKNESS Status: Acute Current Visit: Yes Annotati on/Comment:: improving (5) Hyperglycemia, drug-induced SNOMED Code(s): 210212374 Code(s): R73.9 - HYPERGLYCEMIA, UNSPECIFIED; T50.905A - ADVERSE EFFECT OF UNSP DRUG/MEDS/BIOL SUBST, INIT Status: Acute Current Visit: Yes Annotation/Comment:: most likely due to steriods over the past 6 weeks. Hgb A1c was 7.1, has been on steroid since end of November. Hold Metformin, had elevation in Lactic acid with decreased fluid intake and marked response to diuresis with Torsemide. (6) COPD (chronic obstructive pulmonary disease) SNOMED Code(s): 87002732 Code(s): J44.9 - CHRONIC OBSTRUCTIVE PULMONARY DISEASE, UNSPECIFIED Status: Acute Current Visit: Yes Qualifiers: COPD type: chronic bronchitis Annotation/Comment:: questionable, has had freon & anhydrous exposure, further evaluation by pulmonology next week. Will need high resolution CT and PFTs to confirm diagnosis. (7) Physical deconditioning SNOMED Code(s): 59229727818854 Code(s): R53.81 - OTHER MALAISE Status: Acute Current Visit: Yes (8) HTN (hypertension) SNOMED Code(s): 96678408 Code(s): I10 - ESSENTIAL (PRIMARY) HYPERTENSION Status: Chronic Current Visit: Yes Qualifiers: Hypertension type: essential hypertension Qualified Code(s): I10 - Essential (primary) hypertension (9) Obesity SNOMED Code(s): 146904172, 381717189 Code(s): E66.9 - OBESITY, UNSPECIFIED Status: Chronic Current Visit: Yes Qualifiers: Obesity type: due to excess calories (10) GEORGE (acute kidney injury) SNOMED Code(s): 20326803, 48979039 Code(s): N17.9 - ACUTE KIDNEY FAILURE, UNSPECIFIED Status: Resolved Current Visit: Yes - Problem List Review Problem List Initiated/Reviewed/Updated: Yes - My Orders Last 24 Hours: My Active Orders 02/13/21 17:05 Blood Glucose Check, Bedside [RC] ONETIME 02/13/21 20:35 EKG 12 Lead [EK] Routine 02/14/21 06:00 OT Evaluation and Treatment [CONS] Routine PT Evaluation and Treatment [CONS] Routine 02/14/21 17:30 Piperacillin/Tazobactam [Zosyn] 4.5 gm Sodium Chloride 0.9% [Normal Saline] 50 ml IV ONETIME 02/14/21 21:00 Metoprolol Succinate [Toprol XL] 12.5 mg PO BEDTIME 02/15/21 06:00 BASIC METABOLIC PANEL,BMP [CHEM] Routine CBC WITH AUTO DIFF [HEME] Routine - Plan Plan:: 1. SOB/pneumonitis vs fibrosis: WBC bumped to 15 but patient is clinically stable. Prednisone 40 mg daily daily with tapering down 10 mg every 3 days until off. Marked response to Torsemide, went into atrial fibrillation and hypotensive, received dose this morning but will discontinue. Most likely fibrosis is lung exam has not improved with aggressive diuresis. Continue Flutter valve(Acapella) & Incentive Spirometry. Budesonide neb bid & DuoNeb qid. Seeing Reji Arreola PA-C [facility] on 02/17. Lactic acid 2.8, minimal increase most likely due to overdiuresis. 2. Atrial fibrillation: Metoprolol 12.5 mg at bedtime. Stop Torsemide. Had peripheral edema since steroid initiated. Continue telemetry. 3. Peripheral edema 2/2 steroids: HCTZ 12.5 mg daily to start tomorrow. Will see how he tolerates this. 4. Discharge plan: plan tomorrow but will adjust as necessary.
[2021-02-14] MEDS ORDERED: Metoprolol Succinate 25 MG Tab.ER PO SCH ×2 (15:00→21:00)
[2021-02-14] MEDS: Enoxaparin 40 MG/0.4 ML Syringe SUBCUT SCH (15:20)
[2021-02-14] MEDS ORDERED: Sodium Chloride 0.9% 1,000 ML IV ONE ×2 (17:00→20:51)
[2021-02-14] MEDS ORDERED: Piperacillin/Tazobactam 4.5 GM in Sodium Chloride 0.9% 50 ML IV ONE (17:30)
[2021-02-14] MEDS: Simvastatin 10 MG Tab PO SCH (20:45)
[2021-02-14] MEDS: Multivitamins with Iron/Calcium/Folic Acid/Minerals Tab PO SCH (20:45)
[2021-02-14] MEDS: guaiFENesin 600 MG Tab.ER PO SCH (20:55)
[2021-02-15] MEDS: Albuterol/Ipratropium 3.0-0.5 MG/3 ML Neb Soln NEB PRN ×2 (06:32→12:40)
[2021-02-15] MEDS: Budesonide 0.5 MG/2 ML Neb Susp INH SCH (06:32)
[2021-02-15] MEDS: Saccharomyces Boulardii (Probiotic) 250 MG Cap PO SCH (08:17)
[2021-02-15] MEDS: guaiFENesin 600 MG Tab.ER PO SCH (08:17)
[2021-02-15] MEDS: Potassium Chloride 20 MEQ Tab.ER PO SCH (08:17)
[2021-02-15] MEDS: predniSONE 20 MG Tab PO SCH (08:17)
[2021-02-15] MEDS ORDERED: Torsemide 20 MG Tab PO SCH (09:00)
--- NOTE | 2021-02-15 15:54 | PCM.DCSUM1 ---
Discharge Summary - Hospital Course HPI Initial Comments: Baltazar complains of SOBOE. This started in September, has been getting worse progressively. He has been treated several times as an outpatient for pneumonia and bronchitis,with no improvement. He had prednisone 12/20/20, then had 2 courses of Dexamethasone & Levofloxacin in December. Then was started on Prednisone 5 mg daily with Ventolin inhaler 02/03. He has had COVID testing x4 and has been negative. He is a non smoker. Previously healthy. History of freon & anhydrous ammonia exposure, that was work related. History of LA with stent placement. [facility], but sees Dr Girard or Dr Riddle at [facility] for most of his care. He is due to see Reji Arreola PA-C at [facility] on 02/17 for further pulmonary workup. Diagnosis: Stroke: No - Discharge Data Discharge Date: 02/15/21 Discharge Disposition: Home, Self-Care 01 Condition: Stable - Referral to Home Health Primary Care Physician: Mervin Girard MD - Discharge Diagnosis/Problem(s) (1) SOBOE (shortness of breath on exertion) SNOMED Code(s): 96989856 ICD Code: R06.02 - SHORTNESS OF BREATH Status: Acute (2) Pulmonary fibrosis, unspecified SNOMED Code(s): 51257485 ICD Code: J84.10 - PULMONARY FIBROSIS, UNSPECIFIED Status: Acute Problem Details: Suspected. Further workup with Pulmonology on February 17. (3) New onset atrial fibrillation SNOMED Code(s): 95699411 ICD Code: I48.91 - UNSPECIFIED ATRIAL FIBRILLATION Status: Acute (4) Pneumonitis SNOMED Code(s): 999613274 ICD Code: J18.9 - PNEUMONIA, UNSPECIFIED ORGANISM Status: Acute Problem Details: vs fibrosis (5) Weakness SNOMED Code(s): 67298326 ICD Code: R53.1 - WEAKNESS Status: Acute Problem Details: improving (6) Hyperglycemia, drug-induced SNOMED Code(s): 653005949 ICD Code: R73.9 - HYPERGLYCEMIA, UNSPECIFIED; T50.905A - ADVERSE EFFECT OF UNSP DRUG/MEDS/BIOL SUBST, INIT Status: Acute Problem Details: most likely due to steriods over the past 6 weeks. Hgb A1c was 7.1, has been on steroid since end of November. Hold Metformin, had elevation in Lactic acid with decreased fluid intake and marked response to diuresis with Torsemide. (7) COPD (chronic obstructive pulmonary disease) SNOMED Code(s): 76239102 ICD Code: J44.9 - CHRONIC OBSTRUCTIVE PULMONARY DISEASE, UNSPECIFIED Status: Acute Problem Details: questionable, has had freon & anhydrous exposure, further evaluation by pulmonology next week. Will need high resolution CT and PFTs to confirm diagnosis. Qualifiers: COPD type: chronic bronchitis (8) Physical deconditioning SNOMED Code(s): 92067364299970 ICD Code: R53.81 - OTHER MALAISE Status: Acute Problem Details: New onset atrial fibrillation, will do cardiac rehab as outpatient. (9) HTN (hypertension) SNOMED Code(s): 51998313 ICD Code: I10 - ESSENTIAL (PRIMARY) HYPERTENSION Status: Chronic Qualifiers: Hypertension type: essential hypertension Qualified Code(s): I10 - Essential (primary) hypertension (10) Obesity SNOMED Code(s): 489330866, 900043808 ICD Code: E66.9 - OBESITY, UNSPECIFIED Status: Chronic Qualifiers: Obesity type: due to excess calories (11) GEORGE (acute kidney injury) SNOMED Code(s): 18110622, 50955219 ICD Code: N17.9 - ACUTE KIDNEY FAILURE, UNSPECIFIED Status: Resolved (12) Pulmonary edema SNOMED Code(s): 68328044 ICD Code: J81.1 - CHRONIC PULMONARY EDEMA Status: Ruled-out - Patient Summary/Data Consults: Consultations 02/14/21 06:00 OT Evaluation and Treatment [CONS] Routine Please Evaluate and Treat. OT Reason for Consult: ADL's This query below is only for informational purposes and is not editable. Admission Diagnosis/Problem: Congestive heart failure PT Evaluation and Treatment [CONS] Routine Please Evaluate and Treat. PT Reason for Consult: Strengthening This query below is only for informational purposes and is not editable. Admission Diagnosis/Problem: Congestive heart failure Hospital Course: He was started on Zosyn 2.25 g q6h adjusted for renal function, received 7 day course, was started on SoluMedrol 125 mg q8h, then titrated to q12h, then daily then switched to oral prednisone 40 mg daily x 3 days, will go home with taper, decreasing by 10 mg daily every 3 days. He had chest x-ray that showed bilateral infiltrates, questioned covid but was negative. Had CT angio done which showed bilateral infiltrates questioned fibrosis vs pulmonary edema with CHF. Diureses with IV Lasix then switched to oral on 02/11, his weight had gone done 8 pounds but then started coming back up once switched to oral Lasix. proBNP was 352 then 451. Echo showed preserved EF 61%. Creatinine went up to 1.9 then down to 1.3, bumped up to 1.4 then on discharge 1.2. Had changed to Torsemide 10 mg bid, had drop in blood pressure after 1st dose, changed to daily x 1 dose, developed Atrial fibrillation on Sunday night then discontinued Torsemide. Ambulating O2 was 80% on room air on 02/11, repeated on 02/15, dropped to 85% on room air, home oxygen set up with nebulizer machine at discharge. Repeat chest x-rays showed 02/11 and 02/14 showed improvement. Dose of Zosyn was increased with improvement of kidney function to 4.5 gram q6h. WBC started going up with weaning of steroids but neutrophil count went from 91% down to normal range. Clinical improving so did not change antibiotics. Checked lactic acid on 02/14 2.8, then 4.2, metformin was discontinued. Given 1 liter bolus of NS, lactic came down to 2.9, 1 liter NS bolus repeated, came down to 2.0. Speaking with Baltazar and his , he noted increased peripheral edema since starting steroids in November, has been losing weight intentionally with [employer] diet prior to admission. CHF was ruled out, more likely pulmonary fibrosis does have freon, anhydrous exposure history, also account why he has not responded to multiple courses of antibiotics. Incentive spirometry and flutter valve were ordered q1hwa, had improvement in his shortness of breath and able to get up some mucus but swallowed it, could not get sputum culture. DuoNebs qid as needed, he was using qid, added Budesonide 0.5 mg nebs bid, also had improvement of his symptoms. He was started on Metformin for hyperglycemia secondary to steroids, HgbA1c was done 02/10 which was 7.1, he has been on steroids for the past 2 months, would recommended repeating after 3 months off steroids. With steroid taper, his blood sugars came down, Metformin was discontinued on 02/14, fasting blood sugar on 02/15 was 136. With discontinuation of Torsemide, and onset of Atrial fibrillation, his heart rate was 110s to 170s with activity though asymptomatic. Had negative troponin on 02/13 when he went into Afib. Started on Metoprolol 12.5 mg daily as his blood pressure were low, his heart rate and blood pressures were improved, and well controlled on day of discharge. PT/OT were consulted due to physical deconditioning and weakness, they did not feel he needed outpatient services but cardiac rehab assessed him and felt with new onset diagnosis of Atrial fibrillation that he would benefit from level 3 cardiac rehab, to be set up as outpatient. Will also need cardiology consult at [facility] for new onset atrial fibrillation. He is getting further pulmonology workup on 02/17 at 1030 am & 1pm at [facility]. 2 weeks of scripts for DuoNebs, Budesonide, & Metoprolol sent to local pharmacy until he gets his supply from [place] pharmacy. Scripts for 30 days supplies were faxed to [place]. - Patient Instructions Diet: Usual Diet as Tolerated Activity: As Tolerated Driving: Do Not Drive Showering/Bathing: May Shower Notify Provider of: Fever (increased shortness of breath), Increased Pain, Nausea and/or Vomiting Other/Special Instructions: Follow up with Reji Arreola PA-C at [facility] 02/17 at 1030 am & 1pm. Follow up with Dr Perez, [facility] new onset atrial fibrillation, they will be calling you to set up appointment. Follow up with Dr Riddle February 21 at 930am. - Discharge Plan *PRESCRIPTION DRUG MONITORING PROGRAM REVIEWED*: Not Applicable *COPY OF PRESCRIPTION DRUG MONITORING REPORT IN PATIENT KEVIN: Not Applicable Prescriptions/Med Rec: Albuterol/Ipratropium [DuoNeb 3.0-0.5 MG/3 ML] 3 ml NEB QID PRN 14 Days #56 ampule PRN Reason: DYSPNEA Albuterol/Ipratropium [DuoNeb 3.0-0.5 MG/3 ML] 3 ml NEB QID PRN 30 Days #1 box PRN Reason: Dyspnea Metoprolol Succinate 12.5 mg PO BEDTIME 14 Days #14 tab.er.24h predniSONE 0 mg PO DAILY 9 Days #18 tab Budesonide [Pulmicort] 0.5 mg INH BID 14 Days #28 neb Budesonide [Pulmicort] 0.5 mg NEB BID 30 Days #2 box Metoprolol Succinate [Toprol XL] 12.5 mg PO BEDTIME #30 tab.er Home Medications: Home Meds Albuterol [Ventolin HFA] 2 puff IH QID PRN 02/07/21 [History] Calcium Carbonate/Vitamin D3 [Calcium 250+D] 2 tab PO DAILY 02/07/21 [History] Carboxymethylcellulose Sodium [Refresh Tears] 1 drop EYEBOTH TID PRN 02/07/21 [History] Diclofenac Sodium [Voltaren 1% Gel] 4 gm TOP QID PRN 02/07/21 [History] Fish Oil/[place]-3 Fatty Acids [Fish Oil 1,000 MG] 4 gm PO DAILY 02/07/21 [History] Fluticasone Propionate [Flonase] 2 spray NASBOTH DAILY PRN 02/07/21 [History] Multivitamin-Min/Iron/FA/Vit K [Multi-Day Plus Minerals Tablet] 1 ea PO BEDTIME 02/07/21 [History] Naproxen 250 mg PO BID 02/07/21 [History] Nitroglycerin 0.4 mg SL Q5M PRN 02/07/21 [History] Simvastatin 10 mg PO BEDTIME 02/07/21 [History] Albuterol/Ipratropium [DuoNeb 3.0-0.5 MG/3 ML] 3 ml NEB QID PRN 14 Days #56 ampule 02/15/21 [Rx] Albuterol/Ipratropium [DuoNeb 3.0-0.5 MG/3 ML] 3 ml NEB QID PRN 30 Days #1 box 02/15/21 [Rx] Aspirin [Halfprin] 325 mg PO BEDTIME #0 02/15/21 [Rx] Budesonide [Pulmicort] 0.5 mg INH BID 14 Days #28 neb 02/15/21 [Rx] Budesonide [Pulmicort] 0.5 mg NEB BID 30 Days #2 box 02/15/21 [Rx] Metoprolol Succinate 12.5 mg PO BEDTIME 14 Days #14 tab.er.24h 04/20/21 [Rx] Metoprolol Succinate [Toprol XL] 12.5 mg PO BEDTIME #30 tab.er 02/15/21 [Rx] predniSONE 0 mg PO DAILY 9 Days #18 tab 02/15/21 [Rx] predniSONE 5 mg PO DAILY #0 02/15/21 [Rx] Oxygen Therapy Mode: Nasal Cannula Oxygen Flow Rate (L/min): 1 Maintain SPO2% less than: 88 Maintain SpO2% greater than: 94 Patient Handouts: Pulmonary Fibrosis, Pneumonitis, Fall Prevention in Hospitals, Adult, Atrial Fibrillation, Vzfi-ri-Cvkg, Venous Thromboembolism Prevention Forms: ED Department Discharge Referrals: Ewelina Perez MD [Ordering Only Provider] - Mervin Girard MD [Primary Care Provider] - - Discharge Summary/Plan Comment DC Time >30 min.: Yes - General Info Date of Service: 02/15/21 Subjective Update: He is feeling better today, blood pressure improved with IV fluids, heart rate on Telemetry has been atrial fibrillation in the 80s. Denies any pain, or worsening shortness of breath. No fevers or chills. Edema slightly improved. reports she has noticed that he has no patience/tolerance since being on the Prednisone, gets upset quicker than usual. Functional Status: Reports: Tolerating Diet, Ambulating, Urinating, Incentive Spirometry - Patient Data Vitals - Most Recent: Last Vital Signs Temp 97.7 F 02/15/21 07:52 Pulse 81 02/15/21 07:52 Resp 20 02/15/21 07:52 BP 115/82 02/15/21 07:52 Pulse Ox 94 L 02/15/21 10:00 Weight - Most Recent: 249 lb 8 oz Lab Results - Last 24 hrs: Laboratory Results - last 24 hr 02/14/21 02/14/21 02/15/21 Range/Units 16:10 20:10 00:35 WBC (3.2-10.1) x10-3/uL RBC (3.90-5.90) x10(6)uL Hgb (12.9-17.7) g/dL Hct (38.3-50.1) % MCV (80.8-98.7) fL MCH (27.0-33.3) pg MCHC (28.7-35.3) g/dL RDW (12.4-15.0) % Plt Count (117-477) x10(3)uL MPV (6.7-11.0) fL Add Manual Diff Neutrophils % (Manual) (46-82) % Lymphocytes % (Manual) (13-37) % Monocytes % (Manual) (4-12) % Eosinophils % (Manual) (0-5) % Sodium (135-145) mmol/L Potassium (3.5-5.3) mmol/L Chloride (100-110) mmol/L Carbon Dioxide (21-32) mmol/L BUN (7-18) mg/dL Creatinine (0.70-1.30) mg/dL Est Cr Clr Drug Dosing mL/min Estimated GFR (MDRD) (>60) BUN/Creatinine Ratio (9-20) Glucose (80-116) mg/dL Lactic Acid 4.2 H* 2.9 H* 2.0 (0.4-2.0) mmol/L Calcium (8.6-10.2) mg/dL 02/15/21 02/15/21 Range/Units 06:35 06:35 WBC 15.2 H (3.2-10.1) x10-3/uL RBC 5.11 (3.90-5.90) x10(6)uL Hgb 15.2 (12.9-17.7) g/dL Hct 46.1 (38.3-50.1) % MCV 90.3 (80.8-98.7) fL MCH 29.8 (27.0-33.3) pg MCHC 33.0 (28.7-35.3) g/dL RDW 14.5 (12.4-15.0) % Plt Count 235 (117-477) x10(3)uL MPV 8.3 (6.7-11.0) fL Add Manual Diff Yes Neutrophils % (Manual) 67 (46-82) % Lymphocytes % (Manual) 30 (13-37) % Monocytes % (Manual) 2 L (4-12) % Eosinophils % (Manual) 1 (0-5) % Sodium 141 (135-145) mmol/L Potassium 4.4 (3.5-5.3) mmol/L Chloride 103 (100-110) mmol/L Carbon Dioxide 31 (21-32) mmol/L BUN 27 H (7-18) mg/dL Creatinine 1.2 (0.70-1.30) mg/dL Est Cr Clr Drug Dosing 51.55 mL/min Estimated GFR (MDRD) 59 L (>60) BUN/Creatinine Ratio 22.5 H (9-20) Glucose 137 H (80-116) mg/dL Lactic Acid (0.4-2.0) mmol/L Calcium 8.3 L (8.6-10.2) mg/dL Med Orders - Current: Current Medications Discontinued Medications Albuterol/Ipratropium (Albuterol/Ipratropium 3.0-0.5 Mg/3 Ml Neb Soln) 3 ml NEB NOW STA Stop: 02/07/21 11:15 Last Admin: 02/07/21 11:55 Dose: 3 ml Documented by: Albuterol/Ipratropium (Albuterol/Ipratropium 3.0-0.5 Mg/3 Ml Neb Soln) 3 ml NEB QID [facility] Last Admin: 02/07/21 15:19 Dose: Not Given Documented by: Albuterol/Ipratropium (Albuterol/Ipratropium 3.0-0.5 Mg/3 Ml Neb Soln) 3 ml NEB QID PRN PRN Reason: DYSPNEA Last Admin: 02/15/21 12:40 Dose: 3 ml Documented by: Atenolol (Atenolol 25 Mg Tab) 25 mg PO BEDTIME [facility] Last Admin: 02/09/21 21:20 Dose: 25 mg Documented by: Budesonide (Budesonide 0.5 Mg/2 Ml Neb Susp) 0.5 mg INH BIDRT [facility] Last Admin: 02/15/21 06:32 Dose: 0.5 mg Documented by: Enoxaparin Sodium (Enoxaparin 40 Mg/0.4 Ml Syringe) 40 mg SUBCUT Q24H [facility] Last Admin: 02/14/21 15:20 Dose: 40 mg Documented by: Enoxaparin Sodium (Enoxaparin 100 Mg/1 Ml Syringe) 100 mg SUBCUT ONETIME ONE Stop: 02/13/21 20:58 Last Admin: 02/13/21 22:32 Dose: 100 mg Documented by: Furosemide (Furosemide 40 Mg/4 Ml Vial) 40 mg IVPUSH NOW ONE Stop: 02/07/21 13:29 Last Admin: 02/07/21 13:36 Dose: 40 mg Documented by: Furosemide (Furosemide 40 Mg/4 Ml Vial) 40 mg IVPUSH BID [facility] Furosemide (Furosemide 40 Mg/4 Ml Vial) 40 mg IVPUSH BID@0900,1900 [facility] Last Admin: 02/07/21 20:04 Dose: 40 mg Documented by: Furosemide (Furosemide 20 Mg/2 Ml Vial) 20 mg IVPUSH DAILY [facility] Furosemide (Furosemide 20 Mg/2 Ml Vial) 20 mg IVPUSH BIDDIURETIC [facility] Last Admin: 02/09/21 08:54 Dose: 20 mg Documented by: Furosemide (Furosemide 20 Mg Tab) 20 mg PO BID [facility] Last Admin: 02/10/21 20:54 Dose: 20 mg Documented by: Furosemide (Furosemide 20 Mg Tab) 20 mg PO BIDDIURETIC [facility] Last Admin: 02/13/21 07:49 Dose: 20 mg Documented by: Guaifenesin (Guaifenesin 600 Mg Tab.Er) 600 mg PO BID [facility] Last Admin: 02/15/21 08:17 Dose: 600 mg Documented by: Piperacillin Sod/Tazobactam (Sod 3.375 gm/ Sodium Chloride) 50 mls @ 100 mls/hr IV Q6H [facility] Last Admin: 02/09/21 09:49 Dose: 100 mls/hr Documented by: Piperacillin Sod/Tazobactam (Sod 2.25 gm/ Sodium Chloride) 50 mls @ 100 mls/hr IV Q6H [facility] Stop: 02/13/21 10:30 Last Admin: 02/12/21 09:00 Dose: 100 mls/hr Documented by: Piperacillin Sod/Tazobactam (Sod 4.5 gm/ Sodium Chloride) 50 mls @ 100 mls/hr IV Q6H [facility] Stop: 02/14/21 15:31 Last Admin: 02/12/21 21:33 Dose: 100 mls/hr Documented by: Piperacillin Sod/Tazobactam (Sod 2.25 gm/ Sodium Chloride) 50 mls @ 100 mls/hr IV ONETIME ONE Stop: 02/12/21 10:01 Last Admin: 02/12/21 09:43 Dose: 100 mls/hr Documented by: Sodium Chloride (Normal Saline) Confirm Administered Dose 0 mls @ as directed .ROUTE .STK-MED ONE Stop: 02/12/21 15:47 Last Admin: 02/12/21 19:26 Dose: Not Given Documented by: Piperacillin Sod/Tazobactam (Sod 4.5 gm/ Sodium Chloride) 50 mls @ 100 mls/hr IV Q6H [facility] Stop: 02/14/21 15:00 Last Admin: 02/14/21 11:59 Dose: 100 mls/hr Documented by: Piperacillin Sod/Tazobactam (Sod 4.5 gm/ Sodium Chloride) 50 mls @ 100 mls/hr IV ONETIME ONE Stop: 02/14/21 17:59 Last Admin: 02/14/21 17:23 Dose: 100 mls/hr Documented by: Sodium Chloride (Normal Saline) 1,000 mls @ 999 mls/hr IV .BOLUS ONE Stop: 02/14/21 18:00 Last Admin: 02/14/21 17:17 Dose: 999 mls/hr Documented by: Sodium Chloride (Normal Saline) 1,000 mls @ 999 mls/hr IV ONETIME ONE Stop: 02/14/21 21:51 Last Admin: 02/14/21 20:56 Dose: 999 mls/hr Documented by: Iopamidol (Iopamidol 755 Mg/Ml 100 Ml Bottle) 100 ml IV . DIRECTED ONE Stop: 02/07/21 12:15 Last Admin: 02/07/21 12:37 Dose: 100 ml Documented by: Metformin HCl (Metformin 500 Mg Tab) 500 mg PO BIDMEALS [facility] Last Admin: 02/14/21 07:49 Dose: 500 mg Documented by: Methylprednisolone Sodium Succinate (Methylprednisolone Sodium Succinate 125 Mg/2 Ml Sdv) 125 mg IVPUSH NOW STA Stop: 02/07/21 11:15 Last Admin: 02/07/21 11:45 Dose: 125 mg Documented by: Methylprednisolone Sodium Succinate (Methylprednisolone Sodium Succinate 125 Mg/2 Ml Sdv) 125 mg IVPUSH Q8H [facility] Last Admin: 02/12/21 03:24 Dose: 125 mg Documented by: Methylprednisolone Sodium Succinate (Methylprednisolone Sodium Succinate 125 Mg/2 Ml Sdv) 125 mg IVPUSH Q12H [facility] Stop: 02/12/21 03:31 Last Admin: 02/12/21 03:24 Dose: 125 mg Documented by: Metolazone (Metolazone 5 Mg Tab) 5 mg PO ONETIME ONE Stop: 02/07/21 13:27 Last Admin: 02/07/21 13:36 Dose: 5 mg Documented by: Metolazone (Metolazone 2.5 Mg Tab) 2.5 mg PO DAILY@0800 [facility] Last Admin: 02/08/21 09:00 Dose: 2.5 mg Documented by: Metoprolol Succinate (Metoprolol Succinate 25 Mg Tab.Er) 12.5 mg PO BEDTIME [facility] Metoprolol Succinate (Metoprolol Succinate 25 Mg Tab.Er) 12.5 mg PO DAILY@1500 [facility] Last Admin: 02/14/21 15:07 Dose: 12.5 mg Documented by: Multivitamins/Minerals (Multivitamins With Iron/Calcium/Folic Acid/Minerals Tab) 1 tab PO BEDTIME [facility] Last Admin: 02/14/21 20:45 Dose: 1 tab Documented by: Ondansetron HCl (Ondansetron 4 Mg/2 Ml Sdv) 4 mg IV Q4H PRN PRN Reason: Nausea/Vomiting Perflutren Lipid Microsphere (Perflutren Lipid Microspheres 2.2 Mg/2 Ml Sdv) 2.2 mg IVPUSH PREPRO ONE Stop: 02/08/21 11:20 Last Admin: 02/08/21 11:39 Dose: 2.2 mg Documented by: Potassium Chloride (Potassium Chloride 20 Meq Tab.Er) 20 meq PO BID [facility] Last Admin: 02/15/21 08:17 Dose: 20 meq Documented by: Prednisone (Prednisone 20 Mg Tab) 40 mg PO DAILY [facility] Stop: 02/15/21 09:01 Last Admin: 02/15/21 08:17 Dose: 40 mg Documented by: Saccharomyces Boulardii (Saccharomyces Boulardii (Probiotic) 250 Mg Cap) 250 mg PO BID [facility] Last Admin: 02/15/21 08:17 Dose: 250 mg Documented by: Senna/Docusate Sodium (Docusate Sodium/Sennosides 50-8.6 Mg Tab) 1 tab PO BID PRN PRN Reason: Constipation Simvastatin (Simvastatin 10 Mg Tab) 10 mg PO BEDTIME [facility] Last Admin: 02/14/21 20:45 Dose: 10 mg Documented by: Sodium Chloride (Sodium Chloride 0.9% 10 Ml Syringe) 10 ml FLUSH ASDIRECTED PRN PRN Reason: Keep Vein Open Last Admin: 02/14/21 19:01 Dose: 10 ml Documented by: Torsemide (Torsemide 20 Mg Tab) 10 mg PO BIDDIURETIC [facility] Last Admin: 02/14/21 11:27 Dose: Not Given Documented by: Torsemide (Torsemide 20 Mg Tab) 10 mg PO DAILY [facility] Last Admin: 02/14/21 09:16 Dose: 10 mg Documented by: Torsemide (Torsemide 20 Mg Tab) 5 mg PO DAILY [facility] - Exam Quality Assessment: Reports: Supplemental Oxygen (1L by nc) General: Reports: Alert, Oriented, Cooperative, No Acute Distress Neck: Reports: Trachea Midline Lungs: Reports: Clear to Auscultation, Normal Respiratory Effort, Crackles (fine crackles bibasilar R>L, stable) Cardiovascular: Reports: Regular Rate, Irregular Rhythm GI/Abdominal Exam: Normal Bowel Sounds, Soft, Non-Tender, No Distention Extremities: Pedal Edema (1+ pitting BLE) Skin: Reports: Warm, Dry, Intact
== END 2021-02-15 12:45 | disposition home or self-care (01) | DRG 194 ==
LOC: FB.ED 09:25 → UNDOADMIN 13:41 → FB.MS 13:41
PROVIDERS: ADMIT Family Medicine; ATTEND Family Medicine
DX: I50.1 Left ventricular failure, unspecified (principal); J18.9 Pneumonia, unspecified organism; N17.9 Acute kidney failure, unspecified; J81.1 Chronic pulmonary edema; J84.10 Pulmonary fibrosis, unspecified; I48.91 Unspecified atrial fibrillation; T38.0X5A Adverse effect of glucocorticoids and synthetic analogues, initial encounter; R73.9 Hyperglycemia, unspecified; J44.9 Chronic obstructive pulmonary disease, unspecified; H91.90 Unspecified hearing loss, unspecified ear; Z96.653 Presence of artificial knee joint, bilateral; I95.9 Hypotension, unspecified; E66.09 Other obesity due to excess calories; I11.0 Hypertensive heart disease with heart failure; I50.9 Heart failure, unspecified; Z20.822 Contact with and (suspected) exposure to COVID-19; I25.2 Old myocardial infarction; Z79.82 Long term (current) use of aspirin; Z79.52 Long term (current) use of systemic steroids; Z79.899 Other long term (current) drug therapy; Z95.5 Presence of coronary angioplasty implant and graft; Z87.891 Personal history of nicotine dependence; Z87.440 Personal history of urinary (tract) infections; Z90.89 Acquired absence of other organs; Z98.49 Cataract extraction status, unspecified eye; Z68.36 Body mass index [BMI] 36.0-36.9, adult; R79.89 Other specified abnormal findings of blood chemistry
CPT/HCPCS: 36415; 71045; 71046; 71275; 80048; 80053; 82947; 83036; 83605; 83880; 84484; 85025; 85379; 93005; 93010; 94150; 94640; 94760; 96374; 96375; 97161-GP; 97166-GO; 99285; 99285-25; A9270-GY; C8929; J1650; J1940; J2543; J2930; J7030; J7512; J7620-GY; Q9957; Q9967; U0002